=== PATIENT | female | born 1955 | race Caucasian/White ===

== ENCOUNTER → 2016-08-31 | Outpatient (CLI) | payer MEDICARE, BC ==
[2016-08-31 17:11] LABS: Hepatitis B Surface Ag Index 0.07
[2016-08-31 17:16] LABS: Hepatitis B Core IgM Index 0.03
[2016-08-31 17:28] LABS: Hepatitis C Virus IgG Index 0.01
[2016-08-31 17:31] LABS: Hepatitis C Virus IgG Ab Negative (Negative)
[2016-08-31 17:41] LABS: Rheumatoid Factor, Qnt <9 IU/mL (<12)
[2016-09-01 03:51] LABS: Immunoglobulin G 741 mg/dL (700 - 1600)
[2016-09-01 05:52] LABS: Cyclic Citrullinated Pep IgG 9 UNITS (<20)
[2016-09-01 12:24] LABS: Alternaria alternata IgE <0.35 kU/L (<0.35); Asperg. fumagatus IgE <0.35 kU/L (<0.35); Asperg. fumagatus IgE Class CLASS 0; Candida albicans IgE Class CLASS 0; Clad herbarum IgE <0.35 kU/L (<0.35); Clad herbarum IgE Class CLASS 0; Mucor racemosus IgE <0.35 kU/L (<0.35); Mucor racemosus IgE Class CLASS 0; Penicillium chrysogenum IgE <0.35 kU/L (<0.35); Penicillium chrysogenum IgE Cl CLASS 0
== END | disposition home or self-care (01) ==
LOC: LABWHC1 15:57
PROVIDERS: ATTEND Internal Medicine Infectious Disease
DX: M19.90 Unspecified osteoarthritis, unspecified site (principal)
CPT/HCPCS: 36415; 80074; 82784; 85652; 86003; 86200; 86431

== ENCOUNTER → 2016-08-31 | Outpatient (CLI) | payer MEDICARE, BC ==
--- NOTE | 2016-08-31 16:05 | BD ---
EXAMINATION TYPE: MG DEXA axial skeleton. DATE OF EXAM: 08/31/2016 2:00 PM COMPARISON: NONE CLINICAL HISTORY: M81.0 Height: 69 Weight: 178.6 FRAX RISK QUESTIONS: Alcohol (3 or more units per day): no Family History (Parent hip fracture): no Glucocorticoids (More than 3mos): no (Ex: prednisone, prednisolone, methylprednisolone, dexamethasone, and hydrocortisone). History of Fracture in Adulthood: no Secondary Osteoporosis: 1. Type 1 Diabetes: no 2. Hyperthyroidism: no 3. Menopause before 45: yes 4. Malnutrition: no 5. Chronic liver disease: no Rheumatoid Arthritis: no Current Tobacco Use: yes RISK FACTORS HISTORY OF: Hip Fracture (Right/Left): no Spine Fracture: no History of Wrist Fracture: no Surgery to Spine/Hip(right/left)/Wrist (right/left): c-spine Family History of Osteoporosis: no Active: yes Diet low in dairy products/other sources of calcium: yes Postmenopausal woman: hysterectomy age 39 Lost more than 2 inches in height since high school: no Frequent falls: no Adrenal Insufficiency: no MEDICATIONS: Prednisone or other steroids: nasal spray for allergies Thyroid Medications: synthroid How Lon years Additional Medications: effexor, norco, Zanaflex, deserol EXAM MEASUREMENTS: Bone mineral densitometry was performed using the [place] [facility]. Bone mineral density as measured about the Lumbar spine is: ----- L1-L4(G/cm2): 1.271 T Score Values are as follows: ----- L2: -0.7 ----- L3: 0.7 ----- L4: 2.0 ----- L1-L4: 0.8 Bone mineral density has: decreased -8.2 % since study of: 06.03.2014 Bone mineral density about the R hip (g/cm2): 0.948 Bone mineral density about the L hip (g/cm2): 0.963 T Score values are as follows: -----R Neck: -0.6 -----L Neck: -0.5 -----R Intertrochanter: -1.3 -----L Intertrochanter: -1.0 Bone mineral density has: decreased -8.1 % since study of: 06.03.2014 IMPRESSION: Normal bone density NOTE: T-SCORE=SD OF THE YOUNG ADULT MEAN.
== END ==
LOC: RADBDWWP 13:57
PROVIDERS: ATTEND Internal Medicine
DX: M81.0 Age-related osteoporosis without current pathological fracture (principal)
CPT/HCPCS: 77080

== ENCOUNTER → 2016-08-31 | Outpatient (CLI) | payer MEDICARE, BC ==
--- NOTE | 2016-09-01 08:13 | MM ---
Reason for exam: follow-up at short interval from prior study. Last mammogram was performed 7 months ago. History: Patient is postmenopausal. Family history of breast cancer in maternal aunt and breast cancer in mother at age 60. Benign US biopsy breast VAD LT of the left breast, January 25, 2016. Benign excisional biopsy of the left breast, March 13, 2001. Took estrogen for 12 years beginning at age 41. Physical Findings: Nurse did not find any significant physical abnormalities on exam. MG 3D Diag Mammo W/Cad JUSTIN Bilateral CC and MLO view(s) were taken. Prior study comparison: January 25, 2016, left breast MG diagnostic mammo LT wo CAD. January 06, 2016, bilateral MG 3d diag mammo w/cad JUSTIN. The breast tissue is heterogeneously dense. This may lower the sensitivity of mammography. Post biopsy change in the left breasat. No significant new findings when compared with previous films. These results were verbally communicated with the patient and result sheet given to the patient on 08/31/16. ASSESSMENT: Benign, BI-RAD 2 RECOMMENDATION: Routine screening mammogram of both breasts in 5 months. Back on schedule for December 2016.
--- NOTE | 2016-09-01 08:15 | USB ---
Reason for exam: follow-up at short interval from prior study. History: Patient is postmenopausal. Family history of breast cancer in maternal aunt and breast cancer in mother at age 60. Benign US biopsy breast VAD LT of the left breast, January 25, 2016. Benign excisional biopsy of the left breast, March 13, 2001. Took estrogen for 12 years beginning at age 41. US Breast BILAT Right breast ultrasound including all four quadrants, the retroareolar region and axilla demonstrates duct ectasia at the nipple. Left breast ultrasound including all four quadrants, the retroareolar region and axilla demonstrates a 0.34 x 0.37 x 0.26cm lesion too small to characterize at 1 o'clock, clip, post biopsy change, fibrocystic changes. These results were verbally communicated with the patient and result sheet given to the patient on 08/31/16. ASSESSMENT: Benign, BI-RAD 2 RECOMMENDATION: Routine screening mammogram of both breasts in 5 months. Back on schedule for December 2016.
== END ==
LOC: RADMAMWWP 13:52
PROVIDERS: ATTEND Surgery
DX: R92.8 Other abnormal and inconclusive findings on diagnostic imaging of breast (principal)
CPT/HCPCS: 76641; G0204; G0279; 77080

== ENCOUNTER → 2017-01-10 | Outpatient (CLI) | payer MEDICARE, BC ==
[~2017-01-10] MED LIST: FUROSEMIDE 10 MG/ML 2 ML VIAL IV NR
--- NOTE | 2017-01-10 19:18 | NM ---
EXAMINATION TYPE: NM renal flow and function DATE OF EXAM: 01/10/2017 3:58 PM COMPARISON: NONE HISTORY: Flank pain Following administration of 10.1 mCi Tc99m MAG3. Immediate images post injection were performed, post erior imaging was performed dynamically and time activity curves were generated. Patient received 20 mg Lasix IV at approximately 10 minutes. FINDINGS: Split function shows 53.5% activity in the left kidney and 46.5% in the right. Time to one half activity for the left kidney following Lasix injection is 18.3 minutes and with the right kidney 14.5 minutes following initiation of the exam. There is excretion bilaterally. IMPRESSION: Slight discrepancy in retained calculus within the right kidney as compared to the left as described. Findings may be due to patient's known right ureteropelvic junction obstruction.
== END | disposition home or self-care (01) ==
LOC: RADNMMAIN 14:14
PROVIDERS: ATTEND Urology
DX: N20.0 Calculus of kidney (principal)
CPT/HCPCS: 78707; A9562; J1940

== ENCOUNTER → 2017-01-18 | Outpatient (CLI) | payer MEDICARE, BC ==
--- NOTE | 2017-01-18 13:22 | FL ---
EXAMINATION TYPE: FL barium swallow w video DATE OF EXAM: 01/18/2017 COMPARISON: NONE HISTORY: TECHNIQUE: Fluoroscopy. FINDINGS: Fluoroscopic guidance was provided for the procedure performed in conjunction with the [facility] pathology department. Please see complete report forthcoming from the Speech Pathology departmen t. Various consistencies from thin liquid to solids were administered. No aspiration or penetration was evident. No significant pooling was observed in the vallecula. There was normal propulsion of the bolus. Note is made of persistence of the cricopharyngeus muscle during the exam. This appears to be related to the disc level with a disc spacer, could this be related to the surgery? There are times with thi s appears less prominent suggesting this is the cricopharyngeus muscle versus nonradiopaque foreign b griselda. IMPRESSION: 1. Persistence of the cricopharyngeus during the examination which may account for the patient's symp toms. 2. No aspiration or penetration evident during the exam. 3. Postsurgical changes.
== END | disposition home or self-care (01) ==
LOC: RADFLMAIN 11:44
PROVIDERS: ATTEND Otolaryngology
DX: R13.12 Dysphagia, oropharyngeal phase (principal); Z98.890 Other specified postprocedural states
CPT/HCPCS: 74230

== ENCOUNTER → 2017-01-23 | Outpatient (CLI) | payer MEDICARE, BC ==
--- NOTE | 2017-01-23 22:22 | MR ---
MRI CERVICAL SPINE: CLINICAL HISTORY: Cervical region of spinal stenosis and C5-C6 cervical disc displacement per order TECHNIQUE: Multiplanar, multisequence imaging of the cervical spine is performed without and with IV contrast. Patient is injected with 15 cc of MultiHance for the study. Headache with neck pain for 6 m onths causing pain or weakness into right arm per patient. History of prior neck surgery per patient. COMPARISON: MRI cervical spine September 25, 2015. FINDINGS: Sagittal images of the cervical spine show the craniocervical junction to appear within nor mal limits. The cervical and upper thoracic spinal cord is normal in course, caliber, and signal. V ertebral alignment is anatomic. There is redemonstration of artifact from disc material C5-C6 level. There is interval surgery with posterior decompression with improved posterior spinal canal seen on sagittal image 6. There is artifact from posterior fusion hardware signal seen bilaterally. The verte bral body and intravertebral disk heights are normal above and below surgical levels. The bone marro w signal intensity is within normal limits. No suspicious postcontrast enhancement is seen. No signif icant spurring is noted. Axial images show C2-C3 level to remain within normal limits. Axial images at C3-C4 level show mild uncovertebral facet degenerative changes bilaterally with small broad-based posterior disc protrusion. There is mild effacement of the anterior thecal sac and bilat eral neural foramina. Spinal canal is preserved. No significant change from prior study is seen. Axial images at C4-C5 level show uncovertebral facet degenerative changes causing mild left greater t pichardo right neural foraminal narrowing. No significant change from prior study is seen. Axial images at C5-C6 level show artifact from anterior and posterior fusion hardware. There is poste rior midline osseous resection with improved posterior spinal canal or decompression. There is stable mild bilateral neural foraminal narrowing due to marginal spurring. Axial images at C6-C7 level show new broad-based central disc protrusion mildly effacing anterior the desiree sac on axial image 16 confirmed the sagittal image 7. There is asymmetric mild to moderate left-s ided neural foraminal narrowing now identified. Right-sided neural foramen is patent. Axial images at C7-T1 level are felt within normal limits. IMPRESSION: Interval successful posterior decompression C5-C6 level. Some multilevel degenerative edwin nges in the cervical spine are present, some new findings noted at C6-C7 level versus prior study as detailed above.
== END | disposition home or self-care (01) ==
LOC: RADMRIMAIN 15:18
DX: M47.812 Spondylosis without myelopathy or radiculopathy, cervical region (principal); M50.222 Other cervical disc displacement at C5-C6 level
CPT/HCPCS: 72156; A9577

== ENCOUNTER → 2017-03-13 | Outpatient (CLI) | payer MEDICARE, BC ==
--- NOTE | 2017-03-13 15:55 | US ---
EXAMINATION TYPE: US carotid duplex BILAT DATE OF EXAM: 03/13/2017 COMPARISON: NONE CLINICAL HISTORY: I10 Essential hypertension. EXAM MEASUREMENTS: RIGHT: Peak Systolic Velocity (PSV) cm/sec ----- Right CCA: 91.9 ----- Right ICA: 93.0 ----- Right ECA: 76.5 ICA/CCA ratio: 1.0 RIGHT: End Diastole cm/sec ----- Right CCA: 30.3 ----- Right ICA: 42.4 ----- Right ECA: 16.0 LEFT: Peak Systolic Velocity (PSV) cm/sec ----- Left CCA: 72.1 ----- Left ICA: 93.0 ----- Left ECA: 71.2 ICA/CCA ratio: 1.3 LEFT: End Diastole cm/sec ----- Left CCA: 30.3 ----- Left ICA: 43.5 ----- Left ECA: 15.4 VERTEBRALS (direction of flow): Right Vertebral: Antegrade Left Vertebral: Antegrade No significant stenosis seen, no elevated velocities, minimal plaque noted. IMPRESSION: I DO NOT SEE EVIDENCE OF A HEMODYNAMICALLY SIGNIFICANT STENOSIS IN EITHER CAROTID SYSTEM. Criteria for Assigning % of Stenosis / Diameter reduction (Estimation based on the indirect measurements of the internal carotid artery velocities (ICA PSV). 1. Normal (no stenosis)=ICA PSV < 125 cm/s: ratio < 2.0: ICA EDV<40 cm/s. 2. Less than 50% stenosis=ICA PSV < 125 cm/s: ratio < 2.0: ICA EDV<40 cm/s. 3. 50 to 69% stenosis=ICA PSV of 125 to 230 cm/s: ration 2.0 ? 4.0: ICA EDV 40-100 cm/s. 4. Greater than 70% stenosis to near occlusion= ICA PSV > 230 cm/s: ratio > 4.0: ICA EDV > 100 cm/s. 5. Near occlusion= ICA PSV velocities may be low or undetectable: variable ratio and ICA EDV. 6. Total occlusion=unable to detect flow.
== END | disposition home or self-care (01) ==
LOC: RADUSWWP 14:12
PROVIDERS: ATTEND Internal Medicine Cardiovascular Disease
DX: I10 Essential (primary) hypertension (principal); R09.89 Other specified symptoms and signs involving the circulatory and respiratory systems
CPT/HCPCS: 93880

== ENCOUNTER → 2017-03-13 | Outpatient (CLI) | payer MEDICARE, BC ==
--- NOTE | 2017-03-14 07:59 | MM ---
Reason for exam: follow-up at short interval from prior study. Last mammogram was performed 6 months ago. History: Patient is postmenopausal. Family history of breast cancer in maternal aunt and breast cancer in mother at age 60. Benign US biopsy breast VAD LT of the left breast, January 25, 2016. Benign excisional biopsy of the left breast, March 13, 2001. Took estrogen for 12 years beginning at age 41. Physical Findings: Nurse did not find any significant physical abnormalities on exam. MG 3D Diag Mammo W/Cad JUSTIN Bilateral CC and MLO view(s) were taken. Prior study comparison: August 31, 2016, bilateral MG 3d diag mammo w/cad JUSTIN. January 25, 2016, left breast MG diagnostic mammo LT wo CAD. There are scattered fibroglandular densities. Previous ultrasound biopsy in the left breast. Asymmetric breast tissue in the left breast. No significant new findings when compared with previous films. These results were verbally communicated with the patient and result sheet given to the patient on 03/13/17. ASSESSMENT: Benign, BI-RAD 2 RECOMMENDATION: Routine screening mammogram of both breasts in 1 year.
--- NOTE | 2017-03-14 08:00 | USB ---
Reason for exam: follow-up at short interval from prior study. History: Patient is postmenopausal. Family history of breast cancer in maternal aunt and breast cancer in mother at age 60. Benign US biopsy breast VAD LT of the left breast, January 25, 2016. Benign excisional biopsy of the left breast, March 13, 2001. Took estrogen for 12 years beginning at age 41. US Breast BILAT Right breast ultrasound includes all four quadrants, the retroareolar region and axilla. Finding demonstrates no cystic or solid lesion seen. Left breast ultrasound includes all four quadrants, the retroareolar region and axilla. Finding demonstrates a 0.3 x 0.2 x 0.3cm lesion too small to characterize at 2 o'clock, questionable clip seen. These results were verbally communicated with the patient and result sheet given to the patient on 03/13/17. ASSESSMENT: Benign, BI-RAD 2 RECOMMENDATION: Routine screening mammogram of both breasts in 1 year. Manage patient on a clinical basis.
== END | disposition home or self-care (01) ==
LOC: RADMAMWWP 14:04
PROVIDERS: ATTEND Internal Medicine
DX: R92.2 Inconclusive mammogram (principal)
CPT/HCPCS: 76641; G0204; G0279

== ENCOUNTER → 2017-04-11 | Outpatient (CLI) | payer MEDICARE, BC ==
[2017-04-11 13:12] VITALS: BP 151/91; PULSE 65; RESP 18; TEMP 98.1
--- NOTE | 2017-04-12 07:30 | P.CONS ---
History of Present Illness - Reason for Consult Consult date: 04/11/17 - History of Present Illness This initial consultation for this 62 old female with chronic history of severe neck pain with radiation to the upper extremity, associated with numbness and tingling sensation, the symptoms started several years ago without any initiating event, and she had anterior cervical fusion in May 2015, recently she had posterior cervical fusion, the surgery improved her numbness and tingling sensation in the upper extremity , relieve some of her neck pain, and if she is having symptoms of severe neck pain with radiation to the shoulder blade area, with occasional numbness and tingling in the upper extremities, she is currently using Medication Neurontin 800 mg 3 times a day but she is not taking it as prescribed she take it only if she feels numbness, she reported that Neurontin 800 mg make her sleepy, though she is taking Zanaflex 4 mg every 8 hours and Alpine 10 mg every 6 hours when necessary, denies any change in her bowel movements or urination and she denies any motor or sensory deficit, had no fever or night sweats Past Medical History Past Medical History: Fibromyalgia, GERD/Reflux, Musculoskeletal Disorder, Osteoarthritis (OA), Thyroid Disorder Additional Past Medical History / Comment(s): 05/21/15 Pt admitted to floor s/ p anterior cervical fusion C5-6. Other HX: IBS, lyme disease-delayed speech due to, interstitial cystitis, chronic headaches, ethmoid thickening-taking antibiotic for this "inflammation" History of Any Multi-Drug Resistant Organisms: None Reported Past Surgical History: Bariatric Surgery, Cholecystectomy, Hysterectomy, Orthopedic Surgery Additional Past Surgical History / Comment(s): 05/21/15 Anerior cervical neck fusion C5-6. Other SX: bladder suspension, multiple sinus surgeries, gastric sleeve Past Anesthesia/Blood Transfusion Reactions: Postoperative Nausea & Vomiting ( PONV) Past Psychological History: Anxiety, Depression Additional Psychological History / Comment(s): Pt resides with another adult. She is independent. She uses no assistive device. She drives. Smoking Status: Current every day smoker Past Alcohol Use History: None Reported Additional Past Alcohol Use History / Comment(s): started smoking 10 yrs. ago Past Drug Use History: None Reported - Past Family History Father Family Medical History: Deep Vein Thrombosis (DVT) Mother Family Medical History: AFIB, Cancer Medications and Allergies Home Medications Medication Instructions Recorded Confirmed Type Gabapentin [Neurontin] 800 mg PO TID PRN 04/14/14 04/11/17 History Hydrocodone/Acetaminophen [Alpine 1 each PO Q6H PRN 04/14/14 04/11/17 History 10-325] Lansoprazole [Prevacid] 30 mg PO BID 04/14/14 04/11/17 History Levothyroxine Sodium [Synthroid] 50 mcg PO DAILY 04/14/14 04/11/17 History lamoTRIgine [LaMICtal] 200 mg PO BID 04/14/14 04/11/17 History traZODone HCL [Desyrel] 100 mg PO HS 04/14/14 04/11/17 History ALPRAZolam [Xanax XR] 1 mg PO TID PRN 05/18/15 05/21/15 History Fluconazole [Diflucan] 100 mg PO BID PRN 05/18/15 05/21/15 History Prochlorperazine [Compazine] 10 mg PO Q8H PRN 05/18/15 04/11/17 History Venlafaxine HCl ER [Effexor Xr] 150 mg PO DAILY 05/18/15 04/11/17 History tiZANidine [Zanaflex] 4 mg PO Q8HR PRN 05/18/15 05/21/15 History Allergies Allergy/AdvReac Type Severity Reaction Status Date / Time atenolol AdvReac elevated BP Verified 04/11/17 12:57 atorvastatin calcium AdvReac elevated Verified 04/11/17 12:57 [From Lipitor] liver enzymes hydromorphone HCl AdvReac hyper & Verified 04/11/17 12:57 [From Dilaudid] paranoid morphine AdvReac hyper & Verified 04/11/17 12:57 paranoid Physical Exam Vitals: Vital Signs Temp Pulse Resp BP Pulse Ox 04/11/17 13:04 98.1 F 65 18 151/91 99 Social history : smoker , NO ETOH , NO Illegal drugs use Review of Systems : 1- Constitutional : no chills , no fever , no night sweats , 2- Ears : no ear discharge , no change in hearing 3-Nose, Mouth ,Throat ; no bleeding gums, no sore throat , no epistaxis , 4-Cardiovascular : Denies chest pain, , no orthopnea , no palpitation 5-Respiratory : Denies cough , no dyspnea , no hemoptysis 6-Gastrointestinal :, no change in bowel habits , no coffee- ground emesis . 7-Genitourinary : Interstitial cystitis, 8-Musculoskeletal : No gait dysfunction , report neck pain , 9- Neurological : no ataxia , no tremor , no sezure , 10-Psychatric , no suicidal ideation no hallucination ,+ anexity ,+ depression 11- Endocrine : no cold intolerence , no polyuria , no polydypsia , 12-Hematologic : no easy bleeding , no easy brusing , 13-Allergic / immunology : no angioedema , no wheezing ,no allergic rhinitis 14-Integumentary : no brttle nails , no change hair / nails , no foot/leg ulcers . Physical Examinations : 1-Constitutional : Cooperative , not in acute distress . 2-HEENT : nech ; supple , no Lymphadenopathy , no Thyromegaly , :eyes , no icterus, no photophobia . ENT : , normal oropharynx , no Thrush 3- Respiratory : Chest clear to auscultations Bilaterally , no wheezing . 4- Cardiovascular : regular rate and rhythem , S1 , S2 , no S3 , no S4. 5- Gastrointestinal: abdomen soft no tenderness , no organomegally . 6- Genitourinary : Defferred . 7-Integumentary : No cellulitis , no ulcers , normal skin turgor , no cyanotic . 8- neurologic : Cranial nerve II to XII intact , no focal neurological deffecit 9-psychatric : alert , oriented X 3 , appropriate affect , intact judgment and insight . 10-Lymphatic : no Lymphadenopathy. 11- musculoskeltal: normal gait Cervical Spine motor stregnth in the deltoid and biceps, normal right side , normal Left side motor stregnth biceps and the wrist extensors normal right side ,normal left side . motor stregnth in the triceps muscle . normal Right side , normal Left side deep tendon reflexes normal at the biceps , normal at Brachioradialis , normal at triceps. positive cervical facet loading test . Total trigger point identified in the cervical paravertebral muscles and parascapular muscles Lumber spine moter stegnth lower extremities ,thigh and legs 5/5 Right side , 5/5 Left side Results Comments: I the cervical spine done 01/23/2017= C5 6 anterior and posterior fusion hardware, mild foraminal stenosis, C6 7 central disc protrusion, C4 5 facet this , C3- 4 facet degeneration Assessment and Plan Plan: Assessment and plan= chronic neck pain secondary to cervical facet arthropathy , cervical foraminal stenosis, and myofascial pain syndromes cervical and suprascapular muscles, She had a history of cervical fusion anterior and posterior fusion, ( we Can not perform cervical epidural steroid injection ) Patient could benefit from cervical, suprascapular muscles trigger point injections, and if she continued to have neck pain after the trigger point injection and then we can from diagnostic medial branch block cervical area, and if successful then we can perform the frequency ablation of the medial branch cervical area Discussed with the patient medication management I explained to her that she needs to take Neurontin continuously I gave a new prescription for Neurontin 300 mg Bid , and can be increased in the future as tolerated, so patient should continue Zanaflex 4 mg every 8 hours and she should continue her Alpine 10/325 every 6 hours Time with Patient: Greater than 30
== END | disposition home or self-care (01) ==
LOC: PNWHC3 12:12
PROVIDERS: ATTEND Specialist
DX: M99.71 Connective tissue and disc stenosis of intervertebral foramina of cervical region (principal); M46.92 Unspecified inflammatory spondylopathy, cervical region; M79.1 Myalgia; E07.9 Disorder of thyroid, unspecified; K21.9 Gastro-esophageal reflux disease without esophagitis; F17.200 Nicotine dependence, unspecified, uncomplicated; Z88.8 Allergy status to other drugs, medicaments and biological substances; Z88.5 Allergy status to narcotic agent; Z79.899 Other long term (current) drug therapy
CPT/HCPCS: 99211

== ENCOUNTER 2017-05-30 07:11 | Day surgery (SDC) | payer MEDICARE, BC ==
[2017-05-29 08:27] VITALS: BMI 24.3
[2017-05-30 07:25] VITALS: TEMP 97.8
[2017-05-30] MEDS ORDERED: LACTATED RINGERS 1,000 ML IV ONE (07:25)
[2017-05-30] MEDS ORDERED: LIDOCAINE 1% 20 ML VIAL (10MG/ML) FOR IV START INTRADERMA ONE (07:26)
[2017-05-30] MEDS ORDERED: LACTATED RINGERS 1,000 ML IV SCH (07:30)
[2017-05-30] MEDS ORDERED: IV FLUID CONTINUATION 1,000 ML IV ONE (08:38)
[2017-05-30 09:08] VITALS: BP 134/94; PULSE 61; RESP 16
--- NOTE | 2017-05-30 11:11 | P.PCN ---
Date of Procedure: 05/30/17 Surgeon: Jhonatan Abdi Pathology: none sent Condition: stable Disposition: PACU Description of Procedure: PREOPERATIVE DIAGNOSIS: 1-myofascial pain syndrome POSTOPERATIVE DIAGNOSIS: 1-myofascial pain syndrome PROCEDURE 1. Trigger point injections (cervical paraspinal, thoracic paraspinal, and suprascapular muscles) ANESTHESIA: Local with 1% lidocaine; IV sedation with Versed/fentanyl. EBL: Minimal PROCEDURE INDICATION: The patient with myofascial pain in the area of neck, mid- back, and bilateral shoulders that has not responded to conservative therapy. Patient presents for trigger point injection today; no use of blood thinners. PROCEDURE DESCRIPTION / TECHNIQUE: The patient was seen and identified in the preoperative area. Risks, benefits, complications, and alternatives were discussed with the patient, including but not limited to bleeding, infection, nerve damage, allergic reactions to medications, and incomplete pain relief. The patient agreed to proceed with the procedure and signed the consent after all questions were answered. IV was started, and vital signs were stable. Trigger points were marked prior to entering the procedure room in the places where the patient had severe pain to muscle palpation. Patient was taken to the OR and time out was completed to confirm patient position, procedure, laterality of pain, and allergies. The patient was placed in the sitting position on procedure table. The area over the relevant muscle ( neck/mid-back, and shoulders) was prepped and draped in the usual sterile fashion. Vital signs were closely monitored during the procedure. Conscious sedation was used during the procedure to decrease patients anxiety. Each of the previously marked areas was then infiltrated with 1% plain lidocaine using a 25g needle. After this, each point was entered with the same 25g needle and after a catch was felt, dry needling was performed. After negative aspiration at each point, 1 ml of a total of 13 ml (combination of 12 ml 0.5% bupivacaine and 40 mg Kenalog was injected in each area. Needle was withdrawn intact each time, skin was cleansed, and bandages were applied. COMPLICATIONS: None COMMENTS: None DISPOSITION / PLANS: The patient was placed in a supine position and transferred to the recovery area in a stable condition for observation. There was no evidence of lower extremity motor or sensory deficit after the procedure. Patient was discharged from the recovery room after meeting discharge criteria. Home discharge instructions were given to the patient by the staff. The patient was reexamined prior to discharge and the patient already had relief. The patient will schedule a repeat TPI in 4-6 weeks.
== END 2017-05-30 09:41 | disposition home or self-care (01) ==
LOC: ORPAIN 07:11
PROVIDERS: ATTEND Anesthesiology
DX: M79.1 Myalgia (principal); Z88.5 Allergy status to narcotic agent; Z88.8 Allergy status to other drugs, medicaments and biological substances
CPT/HCPCS: 99152; 20553; J2250; J3301

== ENCOUNTER → 2017-06-29 | Outpatient (CLI) | payer MEDICARE, BC ==
[2017-06-29 14:40] VITALS: BP 151/90; PULSE 60; RESP 16
--- NOTE | 2017-06-29 14:53 | P.PN ---
Progress Note - Text Progress Note Date: 06/29/17 This is a 8-year-old female with history of anterior and posterior cervical fusions. The patient had an exacerbation of her neck pain last week for which she had to take more of her [place] and Valium. The pain is better right now. She did have good relief of her pain after the trigger point injection that lasted about 5 weeks, then she said that her pain came out all of a sudden and was very severe throughout the last week. By physical exam she has normal deep tendon reflexes in the upper extremities and normal muscle strength. She has well-healed scar from her previous posterior cervical fusion and significant tenderness on both sides of the scar tissue and also in the trapezius muscles bilaterally. At this point I'll schedule the patient to have another injection of trigger points and also give her prescription only for 15 pills of Valium 5 mg to be taken only with exacerbations of her pain. PQRS measures: 1-Patient's medications are documented in the chart. 2-Tobacco use is positive, counseling given 3-Patient has not had a pneumococcal vaccine. 4-Advanced care planning discussed, patient unable to give 5-Opioid contract we are not prescribing opioids for the patient 6-Pain positive, follow-up visit or procedure scheduled 7-Patient's blood pressure measured and documented , it is mildly elevated and the patient will follow-up with her primary care physician.. 8-Patient's weight was measured, and body mass index ABOVE the normal limits, and counseling was done. Patient instructed to follow up with PCP. 9-Patient WAS NOT identified as an unhealthy alcohol user.
== END | disposition home or self-care (01) ==
LOC: PNWHC3 13:49
PROVIDERS: ATTEND Anesthesiology
DX: M54.2 Cervicalgia (principal)
CPT/HCPCS: 99211

== ENCOUNTER → 2017-07-11 | Day surgery (SDC) | payer MEDICARE, BC ==
[2017-07-10 12:35] VITALS: BMI 25.1
[~2017-07-11] MED LIST changes: -FUROSEMIDE 10 MG/ML 2 ML VIAL IV NR; +IV FLUID CONTINUATION 1,000 ML IV ONE; +LACTATED RINGERS 1,000 ML IV ONE; +LIDOCAINE 1% 20 ML VIAL (10MG/ML) FOR IV START INTRADERMA ONE
[2017-07-11 10:44] VITALS: RESP 16; TEMP 98.1
--- NOTE | 2017-07-11 11:29 | P.PCN ---
Date of Procedure: 07/11/17 Surgeon: Jhonatan Abdi Pathology: none sent Condition: stable Disposition: PACU Description of Procedure: PREOPERATIVE DIAGNOSIS: 1-myofascial pain syndrome POSTOPERATIVE DIAGNOSIS: 1-myofascial pain syndrome PROCEDURE 1. Trigger point injections (cervical paraspinal, thoracic paraspinal, and trapezius muscles) x 18 ANESTHESIA: Local with 1% lidocaine; IV sedation with Versed EBL: Minimal PROCEDURE INDICATION: The patient with myofascial pain in the area of neck, mid- back, and bilateral shoulders that has not responded to conservative therapy. Patient presents for trigger point injection today after three weeks' relief from first; no use of blood thinners. PROCEDURE DESCRIPTION / TECHNIQUE: The patient was seen and identified in the preoperative area. Risks, benefits, complications, and alternatives were discussed with the patient, including but not limited to bleeding, infection, nerve damage, allergic reactions to medications, and incomplete pain relief. The patient agreed to proceed with the procedure and signed the consent after all questions were answered. IV was started, and vital signs were stable. Trigger points were marked prior to entering the procedure room in the places where the patient had severe pain to muscle palpation. Patient was taken to the OR and time out was completed to confirm patient position, procedure, laterality of pain, and allergies. The patient was placed in the sitting position on procedure table. The area over the relevant muscle ( neck/mid-back, and bilateral shoulders) was prepped and draped in the usual sterile fashion. Vital signs were closely monitored during the procedure. Conscious sedation was used during the procedure to decrease patients anxiety. Each of the previously marked areas was then infiltrated with 1% plain lidocaine using a 25g needle. After this, each point was entered with the same 25g needle and after a catch was felt, dry needling was performed. After negative aspiration at each point, 1 ml of a total of 18 ml (combination of 17 ml 0.5% bupivacaine and 40 mg Kenalog was injected in each area. Needle was withdrawn intact each time, skin was cleansed, and bandages were applied. COMPLICATIONS: None COMMENTS: None DISPOSITION / PLANS: The patient was placed in a supine position and transferred to the recovery area in a stable condition for observation. There was no evidence of lower extremity motor or sensory deficit after the procedure. Patient was discharged from the recovery room after meeting discharge criteria. Home discharge instructions were given to the patient by the staff. The patient was reexamined prior to discharge and the patient already had relief. The patient will schedule a follow-up in clinic in 4-6 weeks.
[2017-07-11 12:05] VITALS: BP 176/83; PULSE 61
== END | disposition home or self-care (01) ==
LOC: ORPAIN 10:04
PROVIDERS: ATTEND Anesthesiology
DX: M79.1 Myalgia (principal); Z98.1 Arthrodesis status
CPT/HCPCS: 20553; J2250; J3301; J2001; 99152

== ENCOUNTER → 2018-03-29 | Outpatient (CLI) | payer MEDICARE, BC | END | disposition home or self-care (01) | LOC: LABWHC1 16:47 | PROVIDERS: ATTEND Urology | DX: R10.2 Pelvic and perineal pain (principal) | CPT/HCPCS: 36415; 82040; 82670; 84270; 84403 ==

== ENCOUNTER → 2018-03-29 | Outpatient (CLI) | payer MEDICARE, BC ==
--- NOTE | 2018-03-29 17:01 | CT ---
EXAMINATION TYPE: CT sinus wo con DATE OF EXAM: 03/29/2018 COMPARISON: 12/09/2014 HISTORY: Sinus pain and infections x [address] DLP: 673.2 mGycm. Automated Exposure Control for Dose Reduction was Utilized. TECHNIQUE: CT scan of the sinuses is performed without contrast, axial images are obtained, coronal r eformatted images are also reviewed. FINDINGS: There is chronic mucoperiosteal thickening of the left maxillary sinus relating to minimal acute on chronic paranasal sinus disease. There is small polypoid mucosal thickening within the infer ior posterior right maxillary sinus on series 6 image 8 measuring 3 mm likely representing a mucosal retention cyst. Probable mucosal retention cyst is also seen within the left sphenoid sinus on image 28 measuring 9 mm. Additional probable mucosal retention cyst versus polyp is seen within the frontal sinus on image 41 measuring 7 mm. There is surgical augmentation of the bilateral ostiomeatal comple xes with antrostomy defects. Nasal septum remains midline. No contra bullosa or Laurie cells. The visualized portions of the mastoid air cells are well aerated. Multilevel dentigerous disease is noted. Nasal spine and maxillary spine are intact. No middle ear cavity fluid is seen. Extraocular mu scles, globes, and lenses are symmetric. IMPRESSION: 1. Minimal left maxillary mucoperiosteal thickening suggesting mild acute on chronic sinusitis. 2. Polypoid mucosal thickening within the right maxillary sinus, left sphenoid sinus and frontal sinu s that may represent mucosal retention cysts or less likely polyps. 3. Postsurgical augmentation of the ostiomeatal complexes with no evidence of ostiomeatal complex obs truction. No contra bullosa or Laurie cells.
== END | disposition home or self-care (01) ==
LOC: RADCTMAIN 16:22
PROVIDERS: ATTEND Otolaryngology Plastic Surgery within the Head & Neck
DX: J34.89 Other specified disorders of nose and nasal sinuses (principal); J32.9 Chronic sinusitis, unspecified; Z98.890 Other specified postprocedural states
CPT/HCPCS: 70486

== ENCOUNTER → 2018-05-30 | Outpatient (CLI) | payer MEDICARE, BC ==
--- NOTE | 2018-05-31 12:37 | ECHOF ---
Referral Reason:R00.2 Palpitations; I34.1 Mitral valve prolapse MEASUREMENTS -------- HEIGHT: 175.3 cm WEIGHT: 72.6 kg BP: 110/70 RVIDd: 3.1 cm (< 3.3) IVSd: 1.0 cm (0.6 - 1.1) LVIDd: 4.2 cm (3.9 - 5.3) LVPWd: 1.0 cm (0.6 - 1.1) IVSs: 1.2 cm LVIDs: 3.6 cm LVPWs: 1.5 cm LA Diam: 2.8 cm (2.7 - 3.8) LAESV Index (A-L): 21.64 ml/m Ao Diam: 2.9 cm (2.0 - 3.7) AV Cusp: 2.0 cm (1.5 - 2.6) MV EXCURSION: 14.881 mm (> 18.000) MV EF SLOPE: 104 mm/s (70 - 150) EPSS: 0.9 cm MV E Tyshawn: 0.70 m/s MV DecT: 178 ms MV A Tyshawn: 0.84 m/s MV E/A Ratio: 0.83 FINDINGS -------- Sinus rhythm. This was a technically adequate study. The left ventricular size is normal. Left ventricular wall thickness is normal. Overall left vent ricular systolic function is low-normal with, an EF between 50 - 55 %. The right ventricle is normal in size. Normal LA size by volume 22+/-6 ml/m2. The right atrium is normal in size. There is mild aortic valve sclerosis. The mitral valve leaflets are mildly thickened. Mild mitral annular calcification present. There is trace mitral regurgitation. The tricuspid valve appears structurally normal. The pulmonic valve was not well visualized. The aortic root size is normal. Normal inferior vena cava with normal inspiratory collapse consistent with estimated right atrial pre ssure of 5 mmHg. The inferior vena cava is mildly dilated. There is no pericardial effusion. CONCLUSIONS -------- 1. Sinus rhythm. 2. This was a technically adequate study. 3. The left ventricular size is normal. 4. Left ventricular wall thickness is normal. 5. Overall left ventricular systolic function is low-normal with, an EF between 50 - 55 %. 6. The right ventricle is normal in size. 7. Normal LA size by volume 22+/-6 ml/m2. 8. The right atrium is normal in size. 9. There is mild aortic valve sclerosis. 10. The mitral valve leaflets are mildly thickened. 11. Mild mitral annular calcification present. 12. There is trace mitral regurgitation. 13. The tricuspid valve appears structurally normal. 14. The pulmonic valve was not well visualized. 15. The aortic root size is normal. 16. Normal inferior vena cava with normal inspiratory collapse consistent with estimated right atrial pressure of 5 mmHg. 17. The inferior vena cava is mildly dilated. 18. There is no pericardial effusion. STRE[facility]IRER: Alysia Concepcion RDCS
== END | disposition home or self-care (01) ==
LOC: RADECHMAIN 13:10
PROVIDERS: ATTEND Internal Medicine Cardiovascular Disease
DX: I35.8 Other nonrheumatic aortic valve disorders (principal)
CPT/HCPCS: 93306

== ENCOUNTER → 2018-06-22 | Outpatient (CLI) | payer MEDICARE, BC ==
--- NOTE | 2018-06-25 13:32 | MM ---
Reason for exam: screening (asymptomatic). Last mammogram was performed 1 year and 3 months ago. History: Patient is postmenopausal. Family history of breast cancer in maternal aunt and breast cancer in mother at age 60. Benign US biopsy breast VAD LT of the left breast, January 25, 2016. Benign excisional biopsy of the left breast, March 13, 2001. Took estrogen for 12 years beginning at age 41. Physical Findings: A clinical breast exam by your physician is recommended on an annual basis and results should be correlated with mammographic findings. MG 3D Screening Mammo W/Cad Bilateral CC and MLO view(s) were taken. Prior study comparison: March 13, 2017, bilateral MG 3d diag mammo w/cad JUSTIN. August 31, 2016, bilateral MG 3d diag mammo w/cad JUSTIN. The breast tissue is heterogeneously dense. This may lower the sensitivity of mammography. There is no discrete abnormality. No significant changes when compared with prior studies. ASSESSMENT: Negative, BI-RAD 1 RECOMMENDATION: Routine screening mammogram of both breasts in 1 year.
== END | disposition home or self-care (01) ==
LOC: RADMAMWWP 16:46
PROVIDERS: ATTEND Internal Medicine
DX: Z12.31 Encounter for screening mammogram for malignant neoplasm of breast (principal)
CPT/HCPCS: 77063; 77067

== ENCOUNTER 2018-09-07 15:54 | Emergency (ER) | payer MEDICARE, BC ==
[2018-09-07 16:03] VITALS: TEMP 97.7
--- NOTE | 2018-09-07 16:57 | ED ---
General Adult HPI - General Chief complaint: Syncope Stated complaint: Syncope, Fall, head injury Source: patient Mode of arrival: ambulatory Limitations: no limitations - Related Data Home Medications Medication Instructions Recorded Confirmed Hydrocodone/Acetaminophen [[place] 1 tab PO TID PRN 04/14/14 09/07/18 10-325] Lansoprazole [Prevacid] 30 mg PO BID 04/14/14 09/07/18 Levothyroxine Sodium [Synthroid] 50 mcg PO DAILY 04/14/14 09/07/18 lamoTRIgine [LaMICtal] 200 mg PO BID 04/14/14 09/07/18 traZODone HCL [Desyrel] 200 mg PO HS 04/14/14 09/07/18 ALPRAZolam [Xanax XR] 1 mg PO TID 05/18/15 09/07/18 Prochlorperazine [Compazine] 10 mg PO Q8H PRN 05/18/15 09/07/18 Venlafaxine HCl ER [Effexor Xr] 150 mg PO DAILY 05/18/15 09/07/18 tiZANidine [Zanaflex] 8 mg PO Q8HR PRN 05/18/15 09/07/18 Meloxicam [Mobic] 15 mg PO DAILY 05/01/17 09/07/18 Plecanatide [Trulance] 3 mg PO DAILY 05/29/17 09/07/18 Ranitidine HCl [Zantac] 150 mg PO BID 06/29/17 09/07/18 Diltiazem Oral [Cardizem Oral] 30 mg PO DAILY 09/07/18 09/07/18 Gabapentin [Neurontin] 300 mg PO TID 09/07/18 09/07/18 Allergies Allergy/AdvReac Type Severity Reaction Status Date / Time atenolol Allergy elevated BP Verified 09/07/18 17:08 morphine AdvReac hyper & Verified 09/07/18 17:08 paranoid Review of Systems ROS Statement: Those systems with pertinent positive or pertinent negative responses have been documented in the HPI. ROS Other: All systems not noted in ROS Statement are negative. Past Medical History Past Medical History: Fibromyalgia, GERD/Reflux, Musculoskeletal Disorder, Osteoarthritis (OA), Thyroid Disorder Additional Past Medical History / Comment(s): HX: IBS, lyme disease with delayed speech , interstitial cystitis, chronic headaches, ethmoid thickening History of Any Multi-Drug Resistant Organisms: None Reported Past Surgical History: Bariatric Surgery, Bladder Surgery, Cholecystectomy, Hysterectomy, Orthopedic Surgery Additional Past Surgical History / Comment(s): Anterior cervical neck fusion C5- 6. followed by posterior approach c5,C6 with 4 screws, and barbie, bladder suspension,interstim implant bladder, multiple sinus surgeries, gastric sleeve Past Anesthesia/Blood Transfusion Reactions: Postoperative Nausea & Vomiting ( PONV) Past Psychological History: Anxiety, Depression Smoking Status: Current every day smoker Past Alcohol Use History: None Reported Past Drug Use History: None Reported - Past Family History Father Family Medical History: Deep Vein Thrombosis (DVT) Mother Family Medical History: AFIB, Cancer Additional Family Medical History / Comment(s): breast cancer General Exam Limitations: no limitations Course Vital Signs 09/07/18 09/07/18 09/07/18 16:00 16:18 17:39 Temperature 97.7 F Pulse Rate 68 50 L Pulse Rate [ 65 Sitting] Pulse Rate [ 70 Standing] Pulse Rate [ 57 L Supine] Respiratory 20 16 18 Rate Blood Pressure 142/90 167/96 Blood Pressure 144/96 [Left Arm Sitting] Blood Pressure 128/88 [Left Arm Standing] Blood Pressure 138/85 [Left Arm Supine] O2 Sat by Pulse 99 98 98 Oximetry 09/07/18 18:24 Temperature Pulse Rate 56 L Pulse Rate [ Sitting] Pulse Rate [ Standing] Pulse Rate [ Supine] Respiratory 18 Rate Blood Pressure 160/99 Blood Pressure [Left Arm Sitting] Blood Pressure [Left Arm Standing] Blood Pressure [Left Arm Supine] O2 Sat by Pulse 99 Oximetry Medical Decision Making - Medical Decision Making Dictation was produced using [employer] dictation software. please excuse any grammatical, word or spelling errors. Chief Complaint: 63-year-old female past medical history of lung disease, fibromyalgia presents after fall and head contusion. History of Present Illness: Patient is 63-year-old female past medical history of fibromyalgia and chronic pain presents with fall. Patient states she fell yesterday evening. She states that she remembers feeling sleepy causing her to fall to the ground. She states she hit her right parietal head. Denies any loss of consciousness. Patient states she was sleepy and slept on the ground. She took Zanaflex and gabapentin prior to this episode. Patient takes gabapentin when necessary. She'll stick Zanaflex. Patient feels okay now. She does complain of some pain over her right head. The ROS documented in this emergency department record has been reviewed and confirmed by me. Those systems with pertinent positive or negative responses have been documented in the HPI. All other systems are other negative and/or noncontributory. PHYSICAL EXAM: General Impression: Alert and oriented x3, not in acute distress HEENT: Normocephalic atraumatic, extra-ocular movements intact, pupils equal and reactive to light bilaterally, mucous membranes moist, tenderness to palpation over the left parietal head Cardiovascular: Heart regular rate and rhythm, S1&S2 audible, no murmurs, rubs or gallops Chest: Lungs clear to auscultation bilaterally, no rhonchi, no wheeze, no rales Abdomen: Bowel sounds present, abdomen soft, non-tender, non-distended, no organomegaly Musculoskeletal: Pulses present and equal in all extremities, no peripheral edema Motor: Power 5/5 bilaterally, no focal deficits noted Neurological: CN II-XII grossly intact, no focal motor or sensory deficits noted Skin: Intact with no visualized rashes Psych: Normal affect and mood ED course: 63-year-old male presents after fall. Vital signs upon arrival are within acceptable limits Laboratory evaluation obtained. CBC, metabolic panel, urinalysis, rapid urine drug screen obtained. She is has a for opiates and benzodiazepines. CT head and C-spine were obtained showing no acute processes. She is told to avoid Zanaflex because likely she syncopized secondary to that medication. Patient told to follow-up with primary care physician. Patient clear for discharge. EKG interpretation: Ventricular rate 59, sinus bradycardia, KS interval 160, QRS 90, QTC 41. No KS prolongation, no QTC prolongation, no ST or T-wave changes noted. Overall, this EKG is unremarkable - Lab Data Result diagrams: 09/07/18 16:23 09/07/18 16:23 Lab Results 09/07/18 09/07/18 09/07/18 Range/Units 16:23 16:23 17:03 WBC 3.6 L (3.8-10.6) k/uL RBC 4.53 (3.80-5.40) m/uL Hgb 12.7 (11.4-16.0) gm/dL Hct 39.9 (34.0-46.0) % MCV 88.0 (80.0-100.0) fL MCH 28.1 (25.0-35.0) pg MCHC 31.9 (31.0-37.0) g/dL RDW 15.2 (11.5-15.5) % Plt Count 215 (150-450) k/uL Neutrophils % 55 % Lymphocytes % 32 % Monocytes % 6 % Eosinophils % 3 % Basophils % 1 % Neutrophils # 2.0 (1.3-7.7) k/uL Lymphocytes # 1.1 (1.0-4.8) k/uL Monocytes # 0.2 (0-1.0) k/uL Eosinophils # 0.1 (0-0.7) k/uL Basophils # 0.0 (0-0.2) k/uL Sodium 135 L (137-145) mmol/L Potassium 4.8 (3.5-5.1) mmol/L Chloride 102 (98-107) mmol/L Carbon Dioxide 24 (22-30) mmol/L Anion Gap 9 mmol/L BUN 14 (7-17) mg/dL Creatinine 0.98 (0.52-1.04) mg/dL Est GFR (CKD-EPI)AfAm 72 (>60 ml/min/1.73 sqM) Est GFR (CKD-EPI)NonAf 62 (>60 ml/min/1.73 sqM) Glucose 84 (74-99) mg/dL Calcium 9.6 (8.4-10.2) mg/dL Magnesium 2.1 (1.6-2.3) mg/dL Urine Color Yellow Urine Appearance Clear (Clear) Urine pH 6.0 (5.0-8.0) Ur Specific [place] 1.010 (1.001-1.035) Urine Protein Negative (Negative) Urine Glucose (UA) Negative (Negative) Urine Ketones Negative (Negative) Urine Blood Negative (Negative) Urine Nitrite Negative (Negative) Urine Bilirubin Negative (Negative) Urine Urobilinogen <2.0 (<2.0) mg/dL Ur Leukocyte Esterase Negative (Negative) Urine Opiates Screen (NotDetected) Ur Oxycodone Screen (NotDetected) Urine Methadone Screen (NotDetected) Ur Propoxyphene Screen (NotDetected) Ur Barbiturates Screen (NotDetected) U Tricyclic Antidepress (NotDetected) Ur Phencyclidine Scrn (NotDetected) Ur Amphetamines Screen (NotDetected) U Methamphetamines Scrn (NotDetected) U Benzodiazepines Scrn (NotDetected) Urine Cocaine Screen (NotDetected) U Marijuana (THC) Screen (NotDetected) 09/07/18 Range/Units 17:03 WBC (3.8-10.6) k/uL RBC (3.80-5.40) m/uL Hgb (11.4-16.0) gm/dL Hct (34.0-46.0) % MCV (80.0-100.0) fL MCH (25.0-35.0) pg MCHC (31.0-37.0) g/dL RDW (11.5-15.5) % Plt Count (150-450) k/uL Neutrophils % % Lymphocytes % % Monocytes % % Eosinophils % % Basophils % % Neutrophils # (1.3-7.7) k/uL Lymphocytes # (1.0-4.8) k/uL Monocytes # (0-1.0) k/uL Eosinophils # (0-0.7) k/uL Basophils # (0-0.2) k/uL Sodium (137-145) mmol/L Potassium (3.5-5.1) mmol/L Chloride (98-107) mmol/L Carbon Dioxide (22-30) mmol/L Anion Gap mmol/L BUN (7-17) mg/dL Creatinine (0.52-1.04) mg/dL Est GFR (CKD-EPI)AfAm (>60 ml/min/1.73 sqM) Est GFR (CKD-EPI)NonAf (>60 ml/min/1.73 sqM) Glucose (74-99) mg/dL Calcium (8.4-10.2) mg/dL Magnesium (1.6-2.3) mg/dL Urine Color Urine Appearance (Clear) Urine pH (5.0-8.0) Ur Specific [place] (1.001-1.035) Urine Protein (Negative) Urine Glucose (UA) (Negative) Urine Ketones (Negative) Urine Blood (Negative) Urine Nitrite (Negative) Urine Bilirubin (Negative) Urine Urobilinogen (<2.0) mg/dL Ur Leukocyte Esterase (Negative) Urine Opiates Screen Detected H (NotDetected) Ur Oxycodone Screen Not Detected (NotDetected) Urine Methadone Screen Not Detected (NotDetected) Ur Propoxyphene Screen Not Detected (NotDetected) Ur Barbiturates Screen Not Detected (NotDetected) U Tricyclic Antidepress Not Detected (NotDetected) Ur Phencyclidine Scrn Not Detected (NotDetected) Ur Amphetamines Screen Not Detected (NotDetected) U Methamphetamines Scrn Not Detected (NotDetected) U Benzodiazepines Scrn Detected H (NotDetected) Urine Cocaine Screen Not Detected (NotDetected) U Marijuana (THC) Screen Not Detected (NotDetected) Disposition Clinical Impression: Syncope Disposition: HOME SELF-CARE Condition: Fair Instructions: Syncope (ED) Is patient prescribed a controlled substance at d/c from ED?: No Referrals: Carly Loyd MD [Primary Care Provider] - 1-2 days Time of Disposition: 18:35
[2018-09-07] MEDS ORDERED: MORPHINE SULFATE 4 MG/ML SYRINGE IVP STA (17:06)
[2018-09-07 17:19] LABS: Basophils % (A) 1 %; Eosinophils # (A) 0.1 k/uL (0-0.7); Eosinophils % (A) 3 %; HCT 39.9 % (34.0-46.0); HGB 12.7 gm/dL (11.4-16.0); Lymphocytes # (A) 1.1 k/uL (1.0-4.8); Lymphocytes % (A) 32 %; MCH 28.1 pg (25.0-35.0); MCHC 31.9 g/dL (31.0-37.0); Mean Platelet Volume 6.7; Monocytes # (A) 0.2 k/uL (0-1.0); Monocytes % (A) 6 %; Neutrophils % (A) 55 %; Platelet Count 215 k/uL (150-450); RBC 4.53 m/uL (3.80-5.40); RDW 15.2 % (11.5-15.5); WBC 3.6 k/uL (3.8-10.6)
[2018-09-07 17:21] LABS: Appearance,Urine Clear (Clear); Bilirubin,Urine Negative (Negative); Blood,Urine Negative (Negative); Color,Urine Yellow; Glucose,Urine (UA) Negative (Negative); Ketones,Urine Negative (Negative); Leukocyte Esterase,Urine Negative (Negative); Nitrite,Urine Negative (Negative); Protein,Urine Negative (Negative); Urobilinogen,Urine <2.0 mg/dL (<2.0)
[2018-09-07 17:26] LABS: Calcium 9.6 mg/dL (8.4-10.2)
[2018-09-07 17:32] LABS: Amphetamine Screen,Urine Not Detected (NotDetected); Barbiturate Screen,Urine Not Detected (NotDetected); Benzodiazepines Screen,Urine Detected (NotDetected); Cocaine Screen,Urine Not Detected (NotDetected); Methadone Screen, Urine Not Detected (NotDetected); Opiate Screen,Urine Detected (NotDetected); Oxycodone Screen, Urine Not Detected (NotDetected); Phencyclidine Screen,Urine Not Detected (NotDetected); Tricyclic Antidepressant,Urine Not Detected (NotDetected); Urn Cannabinoid Scrn Not Detected (NotDetected)
[2018-09-07 17:35] LABS: Magnesium 2.1 mg/dL (1.6-2.3); Potassium 4.8 mmol/L (3.5-5.1)
[2018-09-07] MEDS ORDERED: ONDANSETRON 4 MG/2 ML VIAL IVP STA (17:35)
[2018-09-07 17:41] VITALS: RESP 18
--- NOTE | 2018-09-07 17:46 | CT ---
EXAMINATION TYPE: CT brain kathi kern DATE OF EXAM: 09/07/2018 COMPARISON: CT brain 04/14/2014 HISTORY: Syncope, fell and hit head. Neck pain. Headache. CT DLP: 1296.5 mGycm Automated exposure control for dose reduction was used. TECHNIQUE: CT scan of the head and cervical spine are performed without contrast. FINDINGS: Ventricles of normal size. There is no mass effect nor midline shift. There is no sign of intracranial hemorrhage. The calvarium is intact. There is posterior fusion surgery at C5-6. Vertebra have normal alignment. There is some hardware in the disc space at C5-6. The skull base is intact. I see no compression fracture of the cervical spine . IMPRESSION: Negative CT scan of the brain. No change. Previous cervical spine surgery. No acute abnormality. No fracture seen. Laminectomy defect.
[2018-09-07 18:26] VITALS: BP 160/99; PULSE 56
== END 2018-09-07 18:55 | disposition home or self-care (01) ==
LOC: EC 15:54
DX: R55 Syncope and collapse (principal); R00.1 Bradycardia, unspecified; S09.90XA Unspecified injury of head, initial encounter; M79.7 Fibromyalgia; K21.9 Gastro-esophageal reflux disease without esophagitis; M19.90 Unspecified osteoarthritis, unspecified site; K58.9 Irritable bowel syndrome, unspecified; E07.9 Disorder of thyroid, unspecified; N30.10 Interstitial cystitis (chronic) without hematuria; F32.9 Major depressive disorder, single episode, unspecified; F41.9 Anxiety disorder, unspecified; F17.200 Nicotine dependence, unspecified, uncomplicated; Z88.5 Allergy status to narcotic agent; Z88.8 Allergy status to other drugs, medicaments and biological substances; Z79.1 Long term (current) use of non-steroidal anti-inflammatories (NSAID); Z79.899 Other long term (current) drug therapy; Z86.69 Personal history of other diseases of the nervous system and sense organs; Z98.1 Arthrodesis status; Z96.0 Presence of urogenital implants; Z98.890 Other specified postprocedural states; W01.10XA Fall on same level from slipping, tripping and stumbling with subsequent striking against unspecified object, initial encounter
CPT/HCPCS: 36415; 93005; 80048; 83735; 85025; 81003; 80306; 72125; 70450; 99284; 96374; 96375; J2270; J2405

== ENCOUNTER → 2019-05-02 | Outpatient (CLI) | payer MEDICARE, BC ==
--- NOTE | 2019-05-03 08:04 | US ---
EXAMINATION TYPE: US kidneys/renal and bladder DATE OF EXAM: 05/02/2019 COMPARISON: NONE CLINICAL HISTORY: R10.2 Pelvic Pain. Right pelvic pain, hematuria EXAM MEASUREMENTS: Right Kidney: 10.1 x 4.7 x 4.5 cm Left Kidney: 9.7 x 4.5 x 4.3 cm Right Kidney: Prominent column of Neil. There are tiny echogenic foci that could relate to small n onshadowing calculi or prominent renal sinus fat. Left Kidney: There are tiny echogenic foci that could relate to small nonshadowing calculi or promine nt renal sinus fat. Bladder: wnl Bilateral Jets seen: left jet not seen There is no evidence for hydronephrosis at this point in time. No masses are identified. The urina ry bladder is anechoic. Bilateral ureteral jets are not seen. IMPRESSION: No sonographic evidence of hydronephrosis/obstructive uropathy. There are multiple puncta te nonshadowing bilateral foci that could relate to their small nonobstructing renal calculi or promi nent renal sinus fat. CT abdomen without contrast could evaluate for very small calculi.
== END | disposition home or self-care (01) ==
LOC: RADUSWWP 15:44
PROVIDERS: ATTEND Urology
DX: R93.421 Abnormal radiologic findings on diagnostic imaging of right kidney (principal); R93.422 Abnormal radiologic findings on diagnostic imaging of left kidney; R10.9 Unspecified abdominal pain
CPT/HCPCS: 76770

== ENCOUNTER → 2019-09-26 | Outpatient (CLI) | payer MEDICARE, BC ==
--- NOTE | 2019-09-26 10:41 | MM ---
Reason for exam: additional evaluation requested from prior study. Last mammogram was performed 1 year and 3 months ago. History: Patient is postmenopausal. Family history of breast cancer in maternal aunt at age 63 and breast cancer in mother at age 60. Benign US biopsy breast VAD LT of the left breast, January 25, 2016. Benign excisional biopsy of the left breast, March 13, 2001. Took estrogen for 12 years beginning at age 41. Physical Findings: Nurse did not find any significant physical abnormalities on exam. MG 3D Diag Mammo W/Cad JUSTIN Bilateral CC and MLO view(s) were taken. Prior study comparison: June 22, 2018, bilateral MG 3d screening mammo w/cad. March 13, 2017, bilateral MG 3d diag mammo w/cad JUSTIN. The breast tissue is heterogeneously dense. This may lower the sensitivity of mammography. No suspicious abnormality in the right breast. New left lateral asymmetry measuring 6mm posterior to the coil marker and anterior to the excision site on CC. This improves on spot compression view. These results were verbally communicated with the patient and result sheet given to the patient on 09/26/19. ASSESSMENT: Benign, BI-RAD 2 RECOMMENDATION: Routine screening mammogram of both breasts in 1 year.
--- NOTE | 2019-09-26 10:43 | USB ---
Reason for exam: additional evaluation requested from prior study. History: Patient is postmenopausal. Family history of breast cancer in maternal aunt at age 63 and breast cancer in mother at age 60. Benign US biopsy breast VAD LT of the left breast, January 25, 2016. Benign excisional biopsy of the left breast, March 13, 2001. Took estrogen for 12 years beginning at age 41. US Breast BILAT Right complete breast ultrasound includes all four quadrants, the retroareolar region and axilla. Finding demonstrates no cystic or solid lesion seen. Left complete breast ultrasound includes all four quadrants, the retroareolar region and axilla. Finding demonstrates no cystic or solid lesion seen. No suspicious sonographic finding. These results were verbally communicated with the patient and result sheet given to the patient on 09/26/19. ASSESSMENT: Negative, BI-RAD 1 RECOMMENDATION: Routine screening mammogram of both breasts in 1 year.
== END | disposition home or self-care (01) ==
LOC: RADMAMWWP 07:05
PROVIDERS: ATTEND Internal Medicine
DX: R92.8 Other abnormal and inconclusive findings on diagnostic imaging of breast (principal); N63.0 Unspecified lump in unspecified breast
CPT/HCPCS: 77066; 76641; G0279; 77062

== ENCOUNTER → 2020-03-27 | Outpatient (CLI) | payer MEDICARE, BC | END | disposition home or self-care (01) | LOC: RADCTMAIN 16:30 | DX: Z53.9 Procedure and treatment not carried out, unspecified reason (principal) ==

== ENCOUNTER → 2020-04-30 | Outpatient (CLI) | payer MEDICARE, BC | END | disposition home or self-care (01) | LOC: RADMRIMAIN 12:10 | DX: Z53.9 Procedure and treatment not carried out, unspecified reason (principal) ==

== ENCOUNTER → 2020-05-05 | Outpatient (CLI) | payer MEDICARE, BC ==
--- NOTE | 2020-05-05 13:23 | CT ---
EXAMINATION TYPE: CT brain wo con DATE OF EXAM: 05/05/2020 HISTORY: Headache CT DLP: 1108.4 mGycm. Automated Exposure Control for Dose Reduction was Utilized. TECHNIQUE: CT scan of the head is performed without contrast. COMPARISON: 09/07/2018 CT brain FINDINGS: There is no acute intracranial hemorrhage, midline shift, or mass effect identified. Brain parenchyma appears age-appropriate. The ventricles, sulci, and cisterns are normal in size and configuration. No extra-axial fluid collection. Bones and extracranial soft tissues are intact. The globes are gross ly symmetric. Visualized sinuses and mastoid air cells are clear. IMPRESSION: No acute intracranial hemorrhage, midline shift, or mass effect.
== END | disposition home or self-care (01) ==
LOC: RADCTMAIN 08:04
PROVIDERS: ATTEND Internal Medicine
DX: G44.329 Chronic post-traumatic headache, not intractable (principal)
CPT/HCPCS: 70450

== ENCOUNTER → 2020-06-17 | Outpatient (CLI) | payer MEDICARE, BC ==
--- NOTE | 2020-06-17 08:31 | CT ---
EXAMINATION TYPE: CT sinus wo con DATE OF EXAM: 06/17/2020 COMPARISON: Prior sinus CT March 29, 2018. CT brain May 05, 2020 HISTORY: Chronic sinusitis order. Facial pain and headaches for [address] DLP: 606 mGycm. Automated Exposure Control for Dose Reduction was Utilized. TECHNIQUE: CT scan of the sinuses is performed without contrast, axial images are obtained, coronal r eformatted images are also reviewed. FINDINGS: Tiny 3 mm mucous retention cyst or polyp anterior medial left sphenoid sinusitis measures 2 8 remains present. Remainder of paranasal sinuses grossly clear on today's study without suspicious opacification or air-fluid level The surgically treated ostiomeatal complex is patent bilaterally on coronal image 20 for reference. Mild left-sided antral mucosal thickening noted. Visualized portion of mastoid air cells show no abnormal opacification. The globes are intact bilate rally. Visualized brain parenchyma shows mild diffuse age-related cerebral atrophy. IMPRESSION: Mild chronic paranasal sinus disease. No acute sinusitis.
== END | disposition home or self-care (01) ==
LOC: RADCTMAIN 07:54
PROVIDERS: ATTEND Internal Medicine
DX: J34.89 Other specified disorders of nose and nasal sinuses (principal); J32.9 Chronic sinusitis, unspecified
CPT/HCPCS: 70486

== ENCOUNTER → 2020-06-29 | Outpatient (CLI) | payer MEDICARE, BC ==
--- NOTE | 2020-06-30 06:55 | XR ---
EXAMINATION TYPE: XR shoulder complete BILAT DATE OF EXAM: 06/29/2020 CLINICAL HISTORY: pain TECHNIQUE: Three views of the bilateral shoulder are obtained. COMPARISON: None FINDINGS: There is no acute fracture/dislocation evident. The acromioclavicular and glenohumeral zoraida int spaces appear mildly narrowed.. The visualized ribs are intact and unremarkable. IMPRESSION: 1. There is no acute fracture or dislocation. ICD 10 NO FRACTURE, INITIAL EVALUATION
--- NOTE | 2020-06-30 06:55 | XR ---
EXAMINATION TYPE: XR hand complete bilateral DATE OF EXAM: 06/29/2020 CLINICAL HISTORY: pain TECHNIQUE: Frontal, lateral and oblique images of the bilateral hands are obtained. COMPARISON: None. FINDINGS: There is no acute fracture/dislocation evident. The joint spaces appear within normal limi ts. The overlying soft tissue appears unremarkable. IMPRESSION: There is no acute fracture or dislocation ICD 10 NO FRACTURE, INITIAL EVALUATION
== END | disposition home or self-care (01) ==
LOC: RADXRMAIN 14:19
PROVIDERS: ATTEND Internal Medicine
DX: M25.512 Pain in left shoulder (principal); M25.511 Pain in right shoulder; M79.642 Pain in left hand; M79.641 Pain in right hand; Z82.61 Family history of arthritis

== ENCOUNTER → 2020-06-29 | Outpatient (CLI) | payer MEDICARE, BC ==
--- NOTE | 2020-06-29 15:45 | MR ---
MRI CERVICAL SPINE: CLINICAL HISTORY: Cervical spondylosis with myelopathy per order. Headaches with neck pain for 5 year s. TECHNIQUE: Multiplanar, multisequence imaging of the cervical spine is performed without IV contrast. COMPARISON: Prior MRI cervical spine September 25, 2015. CT cervical spine September 07, 2018. FINDINGS: Sagittal images of the cervical spine show the craniocervical junction to remain within nor mal limits. The cervical and upper thoracic spinal cord remains normal in caliber and signal. Verte bral alignment is stable. Artifact from metallic disc material C5-C6 disc space redemonstrated. There is artifact from posterior fusion hardware C5-C6 level with successful posterior decompression on cu rrent study new from the old MRI. The bone marrow signal intensity is within normal limits above and below surgical levels. Axial images show C2-C3 level to appear within normal limits. Axial images at C3-C4 level show focal broad-based posterior disc protrusion with right foraminal dis c protrusion component and uncovertebral facet degenerative changes. There is moderate right and mild to moderate left-sided neural foraminal narrowing. No spinal canal stenosis at this level sagittal i mage 7 and axial image 39 versus prior MRI. Axial images at C4-C5 level left-sided uncovertebral facet degenerative changes contributing to moder ate left-sided neural foraminal narrowing. Some effacement of the posterolateral thecal sac is presen t bilaterally. Axial images at C5-C6 level show successful posterior decompression. Artifact from anterior posterior surgical hardware appear patent bilateral neural foramina. Axial images at C6-C7 level shows broad-based posterior disc protrusion effacing the anterior thecal sac on image 18, patent bilateral neural foramina. Axial images at C7-T1 level appear within normal limits. IMPRESSION: Interval successful posterior decompression at C5-C6 level. Interval progressive degenera tive changes C6-C7 level and noted C3-C4 level were most prominent spinal canal stenosis is now prese nt versus prior MRI. Further details as discussed above.
== END | disposition home or self-care (01) ==
LOC: RADMRIMAIN 14:13
DX: M47.12 Other spondylosis with myelopathy, cervical region (principal)
CPT/HCPCS: 72141

== ENCOUNTER → 2020-10-30 | Outpatient (CLI) | payer MEDICARE, BC ==
--- NOTE | 2020-10-30 16:42 | US ---
EXAMINATION TYPE: US carotid duplex BILAT DATE OF EXAM: 10/30/2020 COMPARISON: 03/13/2017 CLINICAL HISTORY: 65-year-old female R42 Dizziness. TECHNIQUE: Carotid duplex ultrasound examination. Indirect Doppler criteria was utilized. FINDINGS: EXAM MEASUREMENTS: RIGHT: Peak Systolic Velocity (PSV) cm/sec ----- Right CCA: 95.1 ----- Right ICA: 102 ----- Right ECA: 91.1 ICA/CCA ratio: 1.07 RIGHT: End Diastole cm/sec ----- Right CCA: 28.5 ----- Right ICA: 36.7 ----- Right ECA: 14.3 LEFT: Peak Systolic Velocity (PSV) cm/sec ----- Left CCA: 109 ----- Left ICA: 126 ----- Left ECA: 87 ICA/CCA ratio: 1.16 LEFT: End Diastole cm/sec ----- Left CCA: 41.4 ----- Left ICA: 39.4 ----- Left ECA: 12.9 VERTEBRALS (direction of flow): Right Vertebral: Antegrade Left Vertebral: Antegrade Rhythm: Normal No significant stenosis seen. IMPRESSION: Minimally elevated velocity left ICA but without any significant plaque identified. The finding is li lara a consequence of turbulent flow rather than mild stenosis. No hemodynamically significant actuarial intern al carotid artery stenosis on either side. Criteria for Assigning % of Stenosis / Diameter reduction (Estimation based on the indirect measurements of the internal carotid artery velocities (ICA PSV). 1. Normal (no stenosis)=ICA PSV < 125 cm/s: ratio < 2.0: ICA EDV<40 cm/s. 2. Less than 50% stenosis=ICA PSV < 125 cm/s: ratio < 2.0: ICA EDV<40 cm/s. 3. 50 to 69% stenosis=ICA PSV of 125 to 230 cm/s: ration 2.0 ? 4.0: ICA EDV 40-100 cm/s. 4. Greater than 70% stenosis to near occlusion= ICA PSV > 230 cm/s: ratio > 4.0: ICA EDV > 100 cm/s. 5. Near occlusion= ICA PSV velocities may be low or undetectable: variable ratio and ICA EDV. 6. Total occlusion=unable to detect flow.
== END ==
LOC: RADUSWWP 15:00
PROVIDERS: ATTEND Internal Medicine Cardiovascular Disease
DX: R42 Dizziness and giddiness (principal)
CPT/HCPCS: 93880

== ENCOUNTER → 2020-10-30 | Outpatient (CLI) | payer MEDICARE, BC ==
--- NOTE | 2020-10-30 16:47 | XR ---
EXAMINATION TYPE: XR lumbosacral spine 5 views DATE OF EXAM: 10/30/2020 Comparison: None Clinical History: 65-year-old female M47.817 Findings: Cholecystectomy clips. Additional surgical material just below the GE junction. 5 lumbar type vertebr al bodies. No pars interarticularis defect. Advanced degenerative disc disease L4-L5. Vertebral body heights are preserved and alignment is maintained. Facet arthropathy lower lumbar spine. Impression: 1. Advanced degenerative disc disease L4-L5. 2. Facet arthropathy lower lumbar spine. 3. No vertebral compression collapse or malalignment.
--- NOTE | 2020-10-30 16:48 | XR ---
EXAMINATION TYPE: AP view pelvis and 2 views left hip DATE OF EXAM: 10/30/2020 COMPARISON: NONE HISTORY: 65-year-old female M47.817 FINDINGS: SI joints appear symmetric and intact. Mild degenerative spurring of both hips along with some subcho ndral sclerosis along the acetabular roofs, left greater than right. No acute fracture, subluxation, or dislocation. IMPRESSION: No acute osseous abnormality seen. Mild left greater than right hip OA.
== END ==
LOC: RADXRMAIN 15:27
PROVIDERS: ATTEND Internal Medicine
DX: M51.36 Other intervertebral disc degeneration, lumbar region (principal); M47.816 Spondylosis without myelopathy or radiculopathy, lumbar region; M16.0 Bilateral primary osteoarthritis of hip
CPT/HCPCS: 72110; 73502

== ENCOUNTER → 2020-11-25 | Outpatient (CLI) | payer MEDICARE, BC ==
[~2020-11-25] MED LIST changes: -IV FLUID CONTINUATION 1,000 ML IV ONE; -LACTATED RINGERS 1,000 ML IV ONE; -LIDOCAINE 1% 20 ML VIAL (10MG/ML) FOR IV START INTRADERMA ONE; +REGADENOSON 0.4 MG/5 ML SYRINGE IV PRN
--- NOTE | 2020-11-25 11:35 | NM ---
EXAMINATION TYPE: NM stress lexiscan cardiolite DATE OF EXAM: 11/25/2020 COMPARISON: NONE HISTORY: R00.2 Palpitations, R07.2 Precordial pain TECHNIQUE: After the intravenous administration of 9.2 mCi Tc 99m Sestamibi - Cardiolite resting SPE CT images acquired 45 minutes post injection. The patient received 0.4mg Lexiscan, 24.8 mCi Tc 99m Sestamibi - Stress images obtained [address] injection FINDINGS: Review of stress and rest SPECT images demonstrates no distinct perfusion abnormality. Gated analysi s shows normal wall motion with an estimated left ventricular ejection fraction of 70 %. IMPRESSION: No scintigraphic evidence for reversible ischemia.
--- NOTE | 2020-11-25 15:21 | EST ---
EXERCISE STRESS AGE: 65 SEX: Female HT: 5'8" WT: 170 lbs PROTOCOL: Lexiscan Cardiolite STAGE: DURATION OF EXERCISE: HEART RATE REST: 63 BLOOD PRESSURE REST: 141/86 MAXIMUM HEART RATE ACHIEVED: 81 MAXIMUM BLOOD PRESSURE: 143/80 85% MPHR: 133 100% MPHR: 157 METS: INDICATIONS: Palpitations. CLINICAL INFORMATION: Baseline heart rate 63 beats per minute. Baseline blood pressure 141/86 mmHg. Patient received Lexiscan infusion per protocol. No change in heart rate or blood pressure. No change in ECG noted. Baseline ECG shows sinus rhythm with normal ST segments. No arrhythmias noted. Nuclear portion of stress test will be reported separately. MMODL / IJN: [id number] /
== END | disposition home or self-care (01) ==
LOC: RADNMMAIN 08:06
PROVIDERS: ATTEND Internal Medicine Cardiovascular Disease
DX: R07.9 Chest pain, unspecified (principal)
CPT/HCPCS: 93017; 78452; A9500; J2785

== ENCOUNTER → 2021-07-13 | Outpatient (CLI) | payer MEDICARE, BC ==
--- NOTE | 2021-07-14 08:00 | CT ---
EXAMINATION TYPE: CT abdomen pelvis wo/w con DATE OF EXAM: 07/13/2021 COMPARISON: HISTORY: flank pain CT DLP: 2281 mGycm CONTRAST: CT scan of the abdomen and pelvis is performed with Oral Contrast and without and with IV Contrast, p atient injected with 100 mL of Isovue 300. FINDINGS: LUNG BASES-: No visible nodule. No infiltrate. LIVER/GB: The gallbladder surgically absent. No space occupying hepatic lesion. Biliary tree is of normal caliber. PANCREAS: No inflammation. No distinct mass. SPLEEN: No splenic enlargement. 1 cm splenic cyst. ADRENALS: No nodule. No thickening. KIDNEYS/BLADDER: No hydronephrosis. No nephrolithiasis. No distinct renal mass. Urinary bladder g rossly unremarkable. BOWEL: Normal appendix. Normal bowel caliber. No inflammation. Severe fecal stasis. GENITAL ORGANS: No gross abnormality. LYMPH NODES: No greater than 1cm abdominal or pelvic lymph nodes are appreciated. AORTA: No significant abnormality. OSSEOUS STRUCTURES: No significant abnormality is seen. OTHER: No significant additional abnormality is seen. IMPRESSION: 1. Constipation. 2. Splenic cyst.
== END | disposition home or self-care (01) ==
LOC: RADCTMAIN 16:33
PROVIDERS: ATTEND Urology
DX: K59.00 Constipation, unspecified (principal); D73.4 Cyst of spleen
CPT/HCPCS: 74178; Q9967

== ENCOUNTER → 2021-07-28 | Outpatient (CLI) | payer MEDICARE, BC ==
--- NOTE | 2021-07-29 08:59 | BD ---
EXAMINATION TYPE: Axial Bone Density DATE OF EXAM: 07/28/2021 COMPARISON: NONE CLINICAL HISTORY: Height: 68 Weight: 166.7 FRAX RISK QUESTIONS: Alcohol (3 or more units per day): no Family History (Parent hip fracture): no Glucocorticoids (More than 3mos): no (Ex: prednisone, prednisolone, methylprednisolone, dexamethasone, and hydrocortisone). History of Fracture in Adulthood: no Secondary Osteoporosis: 1. Type 1 Diabetes: no 2. Hyperthyroidism: no 3. Menopause before 45: yes 4. Malnutrition: no 5. Chronic liver disease: no Rheumatoid Arthritis: no Current Tobacco Use: yes RISK FACTORS HISTORY OF: Surgery to Spine/Hip(right/left)/Wrist (right/left): c spine Family History of Osteoporosis: yes Active: yes Diet low in dairy products/other sources of calcium: yes Postmenopausal woman: yes Take estrogen and/or progesterone medications: yes How lon years Lost more than 2 inches in height since high school: no MEDICATIONS: Effexor, lamictal, protonix, celebrex, xanax, valtrex Thyroid Medications: synthroid How Lon years Additional History: EXAM MEASUREMENTS: Bone mineral densitometry was performed using the Optovue System. Bone mineral density as measured about the Lumbar spine is: ----- L1-L4(G/cm2): 1.243 T Score Values are as follows: ----- L2: -0.7 ----- L3: 0.2 ----- L4: 2.3 ----- L1-L4: 0.5 Bone mineral density has: decreased -0.5 % since study of: 08.31.2016 Bone mineral density about the R hip (g/cm2): 0.861 Bone mineral density about the L hip (g/cm2): 0.863 T Score values are as follows: -----R Neck: -1.3 -----L Neck: -1.3 -----R Total: -1.4 -----L Total: -1.3 Bone mineral density has: decreased -7.4 % since study of: 08.31.2016 IMPRESSION: Osteopenia NOTE: T-SCORE=SD OF THE YOUNG ADULT MEAN.
--- NOTE | 2021-07-29 12:35 | MM ---
Reason for exam: screening (asymptomatic). Last mammogram was performed 1 year and 10 months ago. History: Patient is postmenopausal. Family history of breast cancer in maternal aunt at age 63 and breast cancer in mother at age 60. Benign US biopsy breast VAD LT of the left breast, January 25, 2016. Benign excisional biopsy of the left breast, March 13, 2001. Took estrogen for 12 years beginning at age 41. Taking progesterone. Taking other hormone. Physical Findings: A clinical breast exam by your physician is recommended on an annual basis and results should be correlated with mammographic findings. MG 3D Screening Mammo W/Cad Bilateral CC and MLO view(s) were taken. Prior study comparison: September 26, 2019, bilateral MG 3d diag mammo w/cad JUSTIN. June 22, 2018, bilateral MG 3d screening mammo w/cad. The breast tissue is heterogeneously dense. This may lower the sensitivity of mammography. There is no discrete abnormality. No significant changes when compared with prior studies. ASSESSMENT: Negative, BI-RAD 1 RECOMMENDATION: Routine screening mammogram of both breasts in 1 year.
== END | disposition home or self-care (01) ==
LOC: RADMAMWWP 15:49
PROVIDERS: ATTEND Internal Medicine
DX: Z12.31 Encounter for screening mammogram for malignant neoplasm of breast (principal); M85.89 Other specified disorders of bone density and structure, multiple sites; Z80.3 Family history of malignant neoplasm of breast; Z78.0 Asymptomatic menopausal state
CPT/HCPCS: 77063; 77067; 77080

== ENCOUNTER → 2021-09-03 | Outpatient (CLI) | payer MEDICARE, BC ==
--- NOTE | 2021-09-03 18:18 | FL ---
EXAMINATION: Small bowel follow through DATE: 09/03/2021 CLINICAL INDICATION: 66-year-old female D64.9, anemia. COMPARISON: Correlation CT 07/13/2021 Total Fluoroscopy Time: 37 seconds 18 images obtained. FINDINGS: Initial gas meter checker image shows nonobstructive bowel gas pattern, moderate stool burden, cholecystectomy cl ips, and additional surgical material below the GE junction relating to sleeve gastrectomy. Following administration of barium, serial films were carried out to 2.5 hours. Barium is seen to franck ch the colon at 2 hours. Loops of jejunum and ileum are compressed and examined under fluoroscopy. The small bowel loops have a normal-caliber. Mucosal pattern is within normal limits. No intrinsic or extrinsic process is suspected. IMPRESSION: Normal small bowel transit time of 2 hours. No specific abnormality seen on small bowel follow-throug h.
== END | disposition home or self-care (01) ==
LOC: RADFLMAIN 07:51
PROVIDERS: ATTEND Internal Medicine
DX: D64.9 Anemia, unspecified (principal)
CPT/HCPCS: 74250

== ENCOUNTER → 2022-02-22 | Outpatient (CLI) | payer MEDICARE, BC ==
--- NOTE | 2022-02-22 19:08 | XR ---
EXAMINATION TYPE: XR cervical spine limited DATE OF EXAM: 02/22/2022 TECHNIQUE: Frontal, lateral, and open mouth view of the cervical spine are obtained. HISTORY: [id number] COMPARISON: Prior cervical spine x-ray November 25, 2021 FINDINGS: The cervical spine is visualized from C1 thru the bottom of C7 level, it is stable and sat isfactory in alignment. The pre-vertebral soft tissue remains within normal limits. The C1-C2 artic ulation is within normal limits on the open mouth view. Bilateral posterior fusion hardware C3-C6 lev els is redemonstrated. Artificial disc material and anterior surgical change C5-C6 level redemonstrat ed. C6-C7 level shows moderate to severe anterior disc space narrowing and spurring with endplate scl erosis. Overlying soft tissue is unremarkable. IMPRESSION: As above. No significant change from prior.
== END | disposition home or self-care (01) ==
LOC: RADXRMAIN 16:13
DX: M47.812 Spondylosis without myelopathy or radiculopathy, cervical region (principal); M99.71 Connective tissue and disc stenosis of intervertebral foramina of cervical region
CPT/HCPCS: 72040

== ENCOUNTER → 2022-05-02 | Outpatient (CLI) | payer MEDICARE, BC ==
--- NOTE | 2022-05-02 08:12 | CT ---
EXAMINATION TYPE: CT cervical spine wo con CT DLP: 351.80 mGycm, Automated exposure control for dose reduction was used. DATE OF EXAM: 05/02/2022 7:34 AM COMPARISON: THIS EXAM WAS READ DURING PACS DOWNTIME, NO PRIORS AVAILABLE.. CLINICAL INDICATION:Female, 67 years old with history of M47.812 spondylosis, post op neck TECHNIQUE: Axial CT images from the skull base to the inferior aspect of T2 we obtained without intra venous contrast. Coronal and sagittal reformatted images were also reviewed. FINDINGS: Fracture: None. Osseous structures: Postsurgical changes involving C3-C6. The posterior hardware appears intact. Ante rior fixation at C5-C6 is present. There is osteophyte formation and disc space narrowing at C6-C7. L aminectomy changes are noted throughout the surgical levels including C4, C5 and C6. Vertebral alignment: There is straightening of the normal alignment likely postsurgical in etiology. Spinal canal/Neural Foramina: No evidence of significant spinal canal narrowing. No evidence for sign ificant neural foraminal stenosis. Neck soft tissues: Prevertebral soft tissues are within normal limits. Other: The airway is patent. The lung apices are clear. IMPRESSION: 1. No evidence of cervical spine fracture. 2. Postsurgical changes with mild multilevel degenerative disc disease.
== END | disposition home or self-care (01) ==
LOC: RADCTMAIN 06:49
DX: M50.322 Other cervical disc degeneration at C5-C6 level (principal)
CPT/HCPCS: 72125

== ENCOUNTER → 2022-07-28 | Outpatient (CLI) | payer MEDICARE, BC ==
--- NOTE | 2022-07-28 21:23 | CTL ---
EXAMINATION TYPE: CT Low Dose Lung DATE OF EXAM: 07/28/2022 4:33 PM CLINICAL INDICATION:Female, 67 years old with history of Z87.891 Personal hx nicotine dependence; cur rent smoker x30 years. 1 pack a day. , history of tobacco use. COMPARISON: None. TECHNIQUE: Multiple axial non-contrast scans were obtained from approximately the lung apices through the upper abdomen. Coronal and sagittal reformatted images were obtained. Low dose technique was uti lized. CT DLP: 93.30 mGycm, Automated exposure control for dose reduction was used. CT Contrast: Contrast used: None Oral contrast used: None FINDINGS: ======== Lack of intravenous contrast and low dose technique limits the evaluation of the vascular and soft ti ssue structures. LUNGS: No evidence of emphysema or pulmonary fibrosis. No evidence of focal consolidation, pneumothor ax or pleural effusion. Some atelectasis in the left lung base both posteriorly and laterally. Nodules: RUL: 3 mm image 19 series 6 RML: Spiculated pulmonary nodule measuring 16 x 12 x 13 mm. Image 39 RLL: None. KIRK: None. LLL: 3 mm image 38 AIRWAY: Patent and unremarkable. HEART: Size within normal limits. MEDIASTINUM: There is no enlarged mediastinal lymph nodes along the right low paratracheal region talia suring up to 18 mm in short axis. Additional lymph nodes are felt to be present more superiorly but a re suboptimally visualized without IV contrast. VASCULATURE: No aortic aneurysm. MUSCULOSKELETAL: No acute osseous abnormalities SOFT TISSUES/LYMPH NODES: Unremarkable. LOWER NECK: Prominent right supraclavicular lymph node measuring 6 mm short axis. UPPER ABDOMEN: The gallbladder surgically absent. Postsurgical changes to the gastric lumen. IMPRESSION: 1. Spiculated right middle lobe pulmonary nodule measuring up to 16 mm. 2. Enlarged mediastinal lymph node concerning for metastatic disease. 3. Additional scattered 3 mm pulmonary nodules attention follow-up imaging. CT LUNG RAD AND CT CHEST RECOMMENDATION: Lung-Rad 4A Suspicious: Follow-up PET/CT is recommended . S Modifier (other clinically significant findings): No Recommend smoking cessation (if current smoker), or continuation of smoking cessation (if prior smoke r). Annual screening for lung cancer with low-dose computed tomography is recommended in adults ages 55 to 77 years who have a 30 pack-year smoking history and currently smoke or have quit within the pa st 15 years. Screening should be discontinued once a person has not smoked for 15 years or develops a health problem that substantially limits life expectancy or the ability or willingness to have curat jesús lung surgery. Lung rads 2021 [email or web address]
== END | disposition home or self-care (01) ==
LOC: RADCTMAIN 14:59
PROVIDERS: ATTEND Internal Medicine
DX: Z12.2 Encounter for screening for malignant neoplasm of respiratory organs (principal); R91.8 Other nonspecific abnormal finding of lung field; R59.0 Localized enlarged lymph nodes; Z87.891 Personal history of nicotine dependence
CPT/HCPCS: 71271

== ENCOUNTER → 2022-12-05 | Outpatient (CLI) | payer MEDICARE, BC ==
--- NOTE | 2022-12-05 15:48 | CT ---
EXAMINATION TYPE: CT cervical spine wo con CT DLP: 421 mGycm, Automated exposure control for dose reduction was used. DATE OF EXAM: 12/05/2022 3:34 PM COMPARISON: CT cervical spine 05/02/2022. CLINICAL INDICATION:Female, 67 years old with history of M47.812; PHH, Spondylosis w/o myelopathy or radiculopathy TECHNIQUE: Axial CT images from the skull base to the inferior aspect of T2 we obtained without intra venous contrast. Coronal and sagittal reformatted images were also reviewed. FINDINGS: Fracture: None. Osseous structures: Postsurgical changes involving C3-C6 redemonstrated. The hardware appears intact. Anterior fixation at C5-C6 is again present. There is osteophyte formation and disc space narrowing at C6-C7. Laminectomy changes are noted throughout the surgical levels including C4, C5 and C6. Vertebral alignment: There is similar straightening of the normal alignment likely postsurgical in et iology. Spinal canal/Neural Foramina: No evidence of significant spinal canal narrowing. No evidence for sign ificant neural foraminal stenosis. Neck soft tissues: Prevertebral soft tissues are within normal limits. Other: The airway is patent. Biapical pleural-parenchymal scarring. IMPRESSION: 1. No evidence of cervical spine fracture. 2. Similar post surgical changes with mild multilevel degenerative disc disease.
== END ==
LOC: RADCTMAIN 15:12
DX: M47.812 Spondylosis without myelopathy or radiculopathy, cervical region (principal); M50.322 Other cervical disc degeneration at C5-C6 level
CPT/HCPCS: 72125

== ENCOUNTER → 2022-12-15 | Outpatient (CLI) | payer MEDICARE, BC ==
--- NOTE | 2022-12-15 12:47 | CT ---
EXAMINATION TYPE: CT chest wo con DATE OF EXAM: 12/15/2022 COMPARISON: 07/28/2022 HISTORY: Follow-up nodule Unenhanced CT of the chest was performed with lung and mediastinal window settings submitted. The la ck of contrast limits evaluation of the vascular, mediastinal and parenchymal structures including th e upper abdomen. Please note direct comparison is difficult given different technique utilized previously. LUNGS: Nodular density within the right middle lobe seen previously measuring 16 mm is significantly smaller in size and measures 7 mm currently. No new nodules are seen. There is calcified granuloma le ft upper lobe which is stable. No pleural effusion or volume loss. No airspace consolidation. MEDIASTINUM/LATASHA: Thoracic aorta is of normal caliber with limited evaluation given lack of contrast . The heart is not enlarged. No evidence for mediastinal mass. No lymph nodes greater than 1cm. P reviously noted enlarged low right paratracheal lymph node has normalized in size and measures 0.95 c m. UPPER ABDOMEN: No significant abnormality is seen. OTHER: No significant other abnormality. IMPRESSION: 1. Right middle lobe nodule is considerably smaller in size at current measurement of 7 mm versus 16 mm previously. In addition low right paratracheal lymph node has normalized. The findings may have b een infectious in etiology with reactive lymph node. Continued follow-up however is recommended with 3 month low-dose CT recommended.
== END | disposition home or self-care (01) ==
LOC: RADCTMAIN 11:37
PROVIDERS: ATTEND Internal Medicine Pulmonary Disease
DX: J84.89 Other specified interstitial pulmonary diseases (principal); R91.8 Other nonspecific abnormal finding of lung field
CPT/HCPCS: 71250

== ENCOUNTER → 2023-02-07 | Outpatient (CLI) | payer MEDICARE, BC ==
--- NOTE | 2023-02-07 21:47 | MR ---
EXAMINATION TYPE: MR cervical spine wo con DATE OF EXAM: 02/07/2023 COMPARISON: 06/29/2020 HISTORY: 68-year-old female M48.02, Post surgery f/u, headaches, fusion C3-6 TECHNIQUE: Multiplanar, multisequence images of the cervical spine were obtained without IV contrast. FINDINGS: No craniocervical junction abnormality, predental space widening, or prevertebral soft tissue swellin g. Postsurgical change of prior ACDF C5-C6 and posterior cervical fusion with laminectomies from C3 thro ugh C6 levels. There has been resolution of the previous spinal canal narrowing at C3-C4 secondary to interval timbo ectomy. There is mild narrowing now present at C2-C3 secondary to minimal disc bulge and some ligamen duke flavum thickening abutting the dorsal cord but without any cord compression. Moderate degenerative disc disease below the fusion at C6 and C7. Discussed by complex tear chelsyin g upon to the ventral thecal sac but without any significant spinal canal stenosis. Normal course and signal intensity of the cervical spinal cord. No suspicious bone marrow replacement. Alignment is maintained. Multilevel hypertrophic facet and uncovertebral joint arthropathy. At C2-C3, changes result in moderate left neural foraminal stenosis. At C3-C4, changes result in mild right neuroforaminal stenosis. At C4-C5, there is resultant mild left neural foraminal stenosis. At C5-C6, changes result in mild bilateral neuroforaminal stenosis. At C6-C7, changes within [id number]-sm-aoeounhx bilateral neuroforaminal stenosis. IMPRESSION: 1. Previous C5-C6 ACDF. Interval extension of posterior cervical fusion now from C3 down through the C6 level with corresponding laminectomies. Resolution of the previous spinal canal narrowing at C3-C4 . 2. Mild narrowing of the spinal canal now at C2-C3 secondary to minimal disc bulge and ligamentum fla vum thickening abutting the dorsal cord. No cord compression. 3. Impression on the ventral thecal sac below the fusion at C6-C7 from disc osteophyte complex but wi thout significant spinal canal stenosis, similar to prior. 4. Variable mild and moderate neuroforaminal stenoses as outlined above.
== END | disposition home or self-care (01) ==
LOC: RADMRIMAIN 10:39
PROVIDERS: ATTEND Neurological Surgery
DX: M48.02 Spinal stenosis, cervical region (principal); M25.78 Osteophyte, vertebrae; M99.71 Connective tissue and disc stenosis of intervertebral foramina of cervical region
CPT/HCPCS: 72141

== ENCOUNTER → 2023-04-04 | Outpatient (CLI) | payer MEDICARE, BC ==
--- NOTE | 2023-04-04 14:06 | CT ---
EXAMINATION TYPE: CT chest wo con CT DLP: 486 mGycm, Automated exposure control for dose reduction was used. DATE OF EXAM: 04/04/2023 1:46 PM COMPARISON: 12/15/2022 CT chest. CLINICAL INDICATION:Female, 68 years old with history of Z87.448 PERSONAL HX OTHER DISEASES Z87.442 S TONES, Pulmonary nodule TECHNIQUE: Multiple axial images were obtained through the chest. Sagittal and coronal reformats were created for review. Contrast used: mL of (None if empty) Oral contrast used: (None if empty) FINDINGS: LUNGS/ PLEURA: No focal consolidation, pneumothorax or pleural effusion. There may be mild centrilobu lar emphysema changes. Left upper lung calcified granulomas present. There is a left upper lobe pulmo nary nodule series 4 image 36 measuring up to 6 mm. Left upper lobe calcified granuloma. Right lower lobe calcified granuloma. Right middle lobe pulmonary nodule now measuring 7 mm, previously 16 mm on 07/28/2022. AIRWAY: Patent and unremarkable. HEART: Size within normal limits. MEDIASTINUM: No gross evidence of adenopathy. VASCULATURE: No aortic aneurysm. MUSCULOSKELETAL: No acute osseous abnormalities SOFT TISSUES/LYMPH NODES: Unremarkable. LOWER NECK: No significant findings. UPPER ABDOMEN: Right upper quadrant surgical clip. Post surgical changes gastric lumen. IMPRESSION: 1. Right middle lobe pulmonary nodule is decrease in size now measuring 7 mm, previously 16 mm on . 2. Left upper lobe 6 mm pulmonary nodule not definitively seen on priors. Attention follow-up ganesh g consider 6-12 month follow-up.
== END | disposition home or self-care (01) ==
LOC: RADCTMAIN 13:17
PROVIDERS: ATTEND Internal Medicine
DX: R91.1 Solitary pulmonary nodule (principal); Z87.448 Personal history of other diseases of urinary system; Z87.442 Personal history of urinary calculi
CPT/HCPCS: 71250

== ENCOUNTER → 2023-06-30 | Outpatient (CLI) | payer MEDICARE, BC ==
--- NOTE | 2023-06-30 14:41 | XR ---
EXAMINATION TYPE: XR cervical spine limited DATE OF EXAM: 06/30/2023 2:38 PM INDICATION: Patient age:Female; 68 years old; Reason for study: Z98.1 Arthrodesis; [facility]. COMPARISON: Cervical spine radiographs 522, MR cervical spine 02/07/2023, CT cervical spine 12/05/2022 TECHNIQUE: The cervical spine was imaged in lateral, AP, and odontoid projections. FINDINGS: The cervical spine is visualized from C1 thru the bottom of C7 level with stable and satisfactory in alignment. The pre-vertebral soft tissue remains within normal limits. The C1-C2 articulation is within normal limits on the open mouth view. Bilateral posterior fusion hardware C3-C6 levels is redemonstrated. Artificial disc material and ante rior surgical change C5-C6 level redemonstrated. Hardware appears intact. C6-C7 level shows moderate to severe anterior disc space narrowing and spurring with endplate sclero sis again. Overlying soft tissue is unremarkable. IMPRESSION: As above. No significant change from prior.
== END | disposition home or self-care (01) ==
LOC: RADXRMAIN 14:21
PROVIDERS: ATTEND Neurological Surgery
DX: Z98.1 Arthrodesis status (principal)
CPT/HCPCS: 72040

== ENCOUNTER → 2023-10-27 | Outpatient (CLI) | payer MEDICARE, BC ==
--- NOTE | 2023-10-29 18:08 | CT ---
EXAMINATION TYPE: CT cervical spine wo con CT DLP: 394.3 mGycm, Automated exposure control for dose reduction was used. DATE OF EXAM: 10/27/2023 12:27 PM COMPARISON: 12/05/2022.. 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 Coronal and sagittal reformatted images were also reviewed. Contrast used: (if blank None) Oral contrast used: (if blank None) FINDINGS: Fracture: None. Osseous structures: Multilevel degenerative disc disease changes with endplate spurring and disc oste ophyte complex's. Fixation changes of the posterior elements at C3-C6. Hardware appears intact. No ev idence for hardware loosening. There is laminectomy changes at these levels. Fixation anteriorly at C 5-C6 noted. There is degeneration versus the C6-C7 with osteophyte formation. Vertebral alignment: Alignment within normal limits. Spinal canal/Neural Foramina: No evidence of significant spinal canal narrowing. Facet joint uncovert ebral joint arthropathy scattered throughout the cervical spine with varying degrees of neural forami nal stenosis. Neural femoral stenosis worse at C3-C4 on the left with moderate, C4-C5 with mild to mo derate bilateral, C5-C6 with moderate left, C6-C7 with moderate to severe left and moderate right. Neck soft tissues: Prevertebral soft tissues are within normal limits. Other: The airway is patent. The lung apices are clear. IMPRESSION: 1. No evidence of cervical spine fracture. 2. Post surgical changes with hardware intact. 3. No foraminal stenosis worse at C6-C7 with moderate to severe left and moderate right neural forami nal stenosis. 4. No evidence for significant spinal canal stenosis within the limitations of the exam. 5. Degeneration changes worse at the C6-C7 adjoining endplates.
== END | disposition home or self-care (01) ==
LOC: RADCTMAIN 11:45
PROVIDERS: ATTEND Neurological Surgery
DX: M47.812 Spondylosis without myelopathy or radiculopathy, cervical region (principal)
CPT/HCPCS: 72125

== ENCOUNTER → 2024-02-03 | Outpatient (CLI) | payer MEDICARE, BC ==
--- NOTE | 2024-02-09 13:31 | CT ---
EXAMINATION TYPE: CT chest wo con CT DLP: 279.4 mGycm, Automated exposure control for dose reduction was used. DATE OF EXAM: 02/03/2024 7:25 AM COMPARISON: 04/04/2023 CLINICAL INDICATION:Female, 69 years old with history of R91.1 NODULES;, lung nodule TECHNIQUE: Multiple axial images were obtained through the chest. Sagittal and coronal reformats were created for review. Contrast used: mL of (None if empty) Oral contrast used: (None if empty) FINDINGS: LUNGS/ PLEURA: Stable right middle lobe 6 mm pulmonary nodule series 4 image 38. Left upper lobe nodu le seen on prior is not definitively visualized. Suspected granuloma in the left upper lobe measuring 2 mm. No new or enlarging pulmonary nodules. No focal consolidation, pneumothorax or pleural effusio n. AIRWAY: Patent and unremarkable. HEART: Size within normal limits. MEDIASTINUM: No gross evidence of adenopathy. Stable right low paratracheal lymph node measuring 9 mm in short axis. VASCULATURE: No aortic aneurysm. MUSCULOSKELETAL: No acute osseous abnormalities SOFT TISSUES/LYMPH NODES: Unremarkable. LOWER NECK: No significant findings. UPPER ABDOMEN: No significant findings. IMPRESSION: 1. Stable right middle lobe 6 pulmonary nodule. No new or enlarging pulmonary nodules. No acute proc ess. 2. Resolution of prior left upper lobe pulmonary nodule.
== END | disposition home or self-care (01) ==
LOC: RADCTMAIN 07:06
PROVIDERS: ATTEND Internal Medicine
DX: R00.2 Palpitations (principal); R91.1 Solitary pulmonary nodule
CPT/HCPCS: 71250

== ENCOUNTER 2024-04-24 16:35 | Emergency (ER) | payer MEDICARE, BC ==
[2024-04-24 16:39] VITALS: TEMP 97.3
[2024-04-24 18:04] LABS: Basophils % (A) 1 %; Eosinophils # (A) 0.2 k/uL (0-0.7); Eosinophils % (A) 3 %; HGB 13.8 gm/dL (11.4-16.0); Lymphocytes # (A) 1.6 k/uL (1.0-4.8); Lymphocytes % (A) 30 %; MCH 30.4 pg (25.0-35.0); MCHC 32.8 g/dL (31.0-37.0); MCV 92.8 fL (80.0-100.0); Mean Platelet Volume 8.5; Monocytes # (A) 0.3 k/uL (0-1.0); Monocytes % (A) 6 %; Neutrophils # (A) 3.2 k/uL (1.3-7.7); Neutrophils % (A) 59 %; Platelet Count 254 k/uL (150-450); RBC 4.53 m/uL (3.80-5.40); RDW 13.2 % (11.5-15.5); WBC 5.4 k/uL (3.8-10.6)
[2024-04-24 18:16] LABS: ALT 20 U/L (4-34); African American GFR (CKD) 78 (>60 ml/min/1.73 sqM); Albumin 4.3 g/dL (3.5-5.0); Anion Gap 4 mmol/L; Blood Urea Nitrogen 9 mg/dL (7-17); Calcium 9.9 mg/dL (8.4-10.2); Carbon Dioxide 29 mmol/L (22-30); Chloride 105 mmol/L (98-107); Glucose 112 mg/dL (74-99); Lipase 137 U/L (23-300); Non-African American GFR(CKD) 67 (>60 ml/min/1.73 sqM); Sodium 138 mmol/L (137-145); Total Bilirubin 0.8 mg/dL (0.2-1.3); Total Protein 7.1 g/dL (6.3-8.2)
--- NOTE | 2024-04-24 18:17 | XR ---
EXAMINATION TYPE: XR chest 2V DATE OF EXAM: 04/24/2024 COMPARISON: 05/19/2015 INDICATION: Chest pain TECHNIQUE: Frontal and lateral views of the chest are obtained. FINDINGS: The heart size is normal. The pulmonary vasculature is normal. The lungs are clear. IMPRESSION: 1. No acute pulmonary process.
[2024-04-24 18:21] LABS: Magnesium 1.9 mg/dL (1.6-2.3)
[2024-04-24 18:22] LABS: AST 39 U/L (14-36); Alkaline Phosphatase 131 U/L (38-126)
[2024-04-24 18:25] LABS: Prothrombin Time 10.6 sec (10.0-12.5)
--- NOTE | 2024-04-24 19:07 | ED ---
Chest Pain HPI - General Chief Complaint: Chest Pain Stated Complaint: Chest Pain,Sob Time Seen by Provider: 04/24/24 16:58 Source: patient Mode of arrival: ambulatory Limitations: no limitations - History of Present Illness Initial Comments: 69-year-old female with past medical history of hiatal hernia who presents emergency department reporting epigastric pain. States that she laid down to take a nap. She when she awoke she had immense pain in her chest. States she is never had anything like this before. It was a burning sensation. The symptoms only lasted a minute before they went away. She denies any alleviating factors. She did take the morphine because it was time for her scheduled dose but the pain had already gone. She has no cardiac history. No history of DVT or PE. She denies calf pain or swelling. No shortness of breath. No nausea or vomiting. No fevers. No other alleviating, precipitating or modifying factors - Related Data Home Medications Medication Instructions Recorded Confirmed Levothyroxine Sodium [Synthroid] 50 mcg PO DAILY 04/14/14 04/24/24 traZODone HCL [Desyrel] 100 - 200 mg PO HS PRN 04/14/14 04/24/24 ALPRAZolam [Xanax XR] 1 mg PO TID 05/18/15 04/24/24 tiZANidine [Zanaflex] 4 mg PO Q8HR PRN 05/18/15 04/24/24 Albuterol Sulfate [Ventolin HFA] 1 - 2 puff INHALATION RT-QID PRN 04/24/24 04/24/24 Atorvastatin Calcium [Lipitor] 40 mg PO DAILY 04/24/24 04/24/24 DULoxetine HCL [Cymbalta] 120 mg PO DAILY 04/24/24 04/24/24 FLUoxetine HCL [PROzac] 20 mg PO DAILY 04/24/24 04/24/24 HYDROcodone/APAP 5-325MG [Preston 1 tab PO TID PRN 04/24/24 04/24/24 5-325] Linaclotide [Linzess] 290 mcg PO DAILY PRN 04/24/24 04/24/24 Morphine Sulfate ER [Ms Contin] 15 mg PO DAILY 04/24/24 04/24/24 Pantoprazole [Protonix] 40 mg PO DAILY 04/24/24 04/24/24 Pregabalin [Lyrica] 75 mg PO BID 04/24/24 04/24/24 flavoxATE HCL [Flavoxate HCl] 100 mg PO BID 04/24/24 04/24/24 lamoTRIgine 200 mg PO BID 04/24/24 04/24/24 Allergies Allergy/AdvReac Type Severity Reaction Status Date / Time atenolol AdvReac elevated BP Verified 04/24/24 18:18 morphine AdvReac hyper & Verified 04/24/24 18:18 paranoid scopolamine AdvReac Hallucinati Verified 04/24/24 18:18 ons Review of Systems ROS Statement: Those systems with pertinent positive or pertinent negative responses have been documented in the HPI. ROS Other: All systems not noted in ROS Statement are negative. Past Medical History Past Medical History: Fibromyalgia, GERD/Reflux, Musculoskeletal Disorder, Osteoarthritis (OA), Thyroid Disorder Additional Past Medical History / Comment(s): HX: IBS, lyme disease with delayed speech , interstitial cystitis, chronic headaches, ethmoid thickening History of Any Multi-Drug Resistant Organisms: None Reported Past Surgical History: Bariatric Surgery, Bladder Surgery, Cholecystectomy, Hysterectomy, Orthopedic Surgery Additional Past Surgical History / Comment(s): Anterior cervical neck fusion C5- 6. followed by posterior approach c5,C6 with 4 screws, and barbie, bladder suspension,interstim implant bladder, multiple sinus surgeries, gastric sleeve Past Anesthesia/Blood Transfusion Reactions: Postoperative Nausea & Vomiting (PONV) Past Psychological History: Anxiety, Depression Smoking Status: Current every day smoker, Unknown if ever smoked Past Alcohol Use History: None Reported Past Drug Use History: None Reported - Past Family History Father Family Medical History: Deep Vein Thrombosis (DVT) Mother Family Medical History: AFIB, Cancer Additional Family Medical History / Comment(s): breast cancer General Exam Limitations: no limitations General appearance: alert, in no apparent distress Head exam: Present: atraumatic, normocephalic, normal inspection Eye exam: Present: normal appearance, PERRL, EOMI. Absent: scleral icterus, conjunctival injection, periorbital swelling ENT exam: Present: normal exam, mucous membranes moist Neck exam: Present: normal inspection. Absent: tenderness, meningismus, lymphadenopathy Respiratory exam: Present: normal lung sounds bilaterally. Absent: respiratory distress, wheezes, rales, rhonchi, stridor Cardiovascular Exam: Present: regular rate, normal rhythm, normal heart sounds. Absent: systolic murmur, diastolic murmur, rubs, gallop, clicks GI/Abdominal exam: Present: soft, normal bowel sounds. Absent: distended, tenderness, guarding, rebound, rigid Extremities exam: Present: normal inspection, full ROM, normal capillary refill. Absent: tenderness, pedal edema, joint swelling, calf tenderness Back exam: Present: normal inspection Neurological exam: Present: alert, oriented X3, CN II-XII intact Psychiatric exam: Present: normal affect, normal mood Skin exam: Present: warm, dry, intact, normal color. Absent: rash Course Vital Signs 04/24/24 04/24/24 16:36 19:40 Temperature 97.3 F L Pulse Rate 88 75 Respiratory 18 16 Rate Blood Pressure 122/82 125/85 O2 Sat by Pulse 98 97 Oximetry Chest Pain MDM - MDM Was pt. sent in by a medical professional or institution (, PA, BEDSP[employer] F[employer]DER, urgent care, hospital, or [facility]...) When possible be specific @ -No Did you speak to anyone other than the patient for history (EMS, parent, family, police, friend...)? What history was obtained from this source @ -No Did you review nursing and triage notes (agree or disagree)? Why? @ -I reviewed and agree with nursing and triage notes Were old charts reviewed (outside hosp., previous admission, EMS record, old EKG, old radiological studies, urgent care reports/EKG's, [facility] records)? Report findings @ -No old charts were reviewed Differential Diagnosis (chest pain, altered mental status, abdominal pain women, abdominal pain men, vaginal bleeding, weakness, fever, dyspnea, syncope, headache, dizziness, GI bleed, back pain, seizure, CVA, palpatations, mental health, musculoskeletal)? @ -Differential Chest Pain: Stable Angina, Unstable Angina, STEMI, NSTEMI Aortic Dissection, Pneumothorax, Musculoskeletal, Esophageal Spasm GERD, Cholecystitis, Pancreatitis, Zoster, this is not meant to be an all-inclusive list. EKG interpreted by me (3pts min.). @ -Yes and demonstrates sinus rhythm with a rate of 77. NM interval 152. QRS 88. QTc of 409. No acute ST segment elevations or depressions X-rays interpreted by me (1pt min.). @ -Yes and demonstrates no acute process CT interpreted by me (1pt min.). @ -None done U/S interpreted by me (1pt. min.). @ -None done What testing was considered but not performed or refused? (CT, X-rays, U/S, labs)? Why? @ -None What meds were considered but not given or refused? Why? @ -None Did you discuss the management of the patient with other professionals (professionals i.e. DrJamshid, PA, B[employer]SP[employer] F[employer]DER, lab, RT, psych nurse, social economist, cert pharmacy tech, teacher, facilities officer, upper caser)? Give summary @ -No Was smoking cessation discussed for >3mins.? @ -No Was critical care preformed (if so, how long)? @ -No Were there social determinants of health that impacted care today? How? (Homelessness, low income, unemployed, alcoholism, drug addiction, transportation, low edu. Level, literacy, decrease access to med. care, halfway, rehab)? @ -No Was there de-escalation of care discussed even if they declined (Discuss DNR or withdrawal of care, Hospice)? DNR status @ -No What co-morbidities impacted this encounter? (DM, HTN, Smoking, COPD, CAD, Cancer, CVA, ARF, Chemo, Hep., AIDS, mental health diagnosis, sleep apnea, morbid obesity)? @ -Hiatal hernia Was patient admitted / discharged? Hospital course, mention meds given and route, prescriptions, significant lab abnormalities, going to OR and other pertinent info. @ -Upon arrival patient seen and evaluated in room 16. Thorough history and physical exam was performed. IV access established. Laboratory studies are conducted. Pain is not present at this time. Twelve-lead EKG was performed. Chest x-ray was performed. I did discuss results with the patient. She is eager to go home at this time. She does have a low heart score. Patient be discharged home. Instructed follow with her primary care doctor for an echo and stress test. Return for any new or worsening symptoms. Patient agreeable plan was discharged in stable condition Undiagnosed new problem with uncertain prognosis? @ -No Drug Therapy requiring intensive monitoring for toxicity (Heparin, Nitro, Insulin, Cardizem)? @ -No Were any procedures done? @ -No Diagnosis/symptom? @ -Acute chest pain Acute, or Chronic, or Acute on Chronic? @ -Acute Uncomplicated (without systemic symptoms) or Complicated (systemic symptoms)? @ -Complicated Side effects of treatment? @ -No Exacerbation, Progression, or Severe Exacerbation? @ -No Poses a threat to life or bodily function? How? (Chest pain, [place], [place], pneumonia, PE, COPD, DKA, ARF, appy, cholecystitis, CVA, Diverticulitis, Homicidal, Suicidal, threat to staff... and all critical care pts) @ -No Disposition Clinical Impression: Chest pain Disposition: HOME SELF-CARE Condition: Stable Instructions (If sedation given, give patient instructions): Chest Pain (ED) Additional Instructions: Please follow-up with your primary care doctor for further evaluation of your symptoms. Return for any new or worsening symptoms Is patient prescribed a controlled substance at d/c from ED?: No Referrals: Carly Loyd MD [Primary Care Provider] - 1-2 days Gary Parson DO [STAFF PHYSICIAN] - 1-2 days Time of Disposition: 19:06
[2024-04-24 20:00] VITALS: BP 125/85; PULSE 75; RESP 16
== END 2024-04-24 20:00 | disposition home or self-care (01) ==
LOC: EC 16:35
DX: R07.89 Other chest pain (principal); F17.200 Nicotine dependence, unspecified, uncomplicated; Z88.5 Allergy status to narcotic agent; Z88.8 Allergy status to other drugs, medicaments and biological substances
CPT/HCPCS: 36415; 71046; 80053; 83690; 83735; 84484; 85025; 85610; 85730; 93005; 99285

== ENCOUNTER → 2024-06-18 | Outpatient (CLI) | payer MEDICARE, BC ==
--- NOTE | 2024-06-18 16:38 | CA ---
Transthoracic Echo Report Name: Josefina Albarado Age: 69 Gender: F : 1955 Exam Date: 06/18/2024 14:20 Exam Location: [place] Echo Ht (in): 69 Wt (lb): 170 Ordering Physician: Carly Loyd MD Attending/Referring Phys: Carly Loyd MD [employer] Kiera Alex, [facility] Procedure CPT: Indications: R00.2 palpitations Cardiac Hx: Technical Quality: Fair Contrast 1: Total Dose (mL): Contrast 2: Total Dose (mL): MEASUREMENTS (Male / Female) Normal Values 2D ECHO LV Diastolic Diameter PLAX 4.4 cm 4.2 - 5.9 / 3.9 - 5.3 cm LV Systolic Diameter PLAX 3.1 cm IVS Diastolic Thickness 0.9 cm 0.6 - 1.0 / 0.6 - 0.9 cm LVPW Diastolic Thickness 1.0 cm 0.6 - 1.0 / 0.6 - 0.9 cm LV Relative Wall Thickness 0.4 LVOT Diameter 2.0 cm DOPPLER AV Peak Velocity 129.6 cm/s AV Peak Gradient 6.7 mmHg AV Mean Velocity 83.1 cm/s AV Mean Gradient 3.2 mmHg AV Velocity Time Integral 25.5 cm LVOT Peak Velocity 106.8 cm/s LVOT Peak Gradient 4.6 mmHg LVOT Velocity Time Integral 23.9 cm LVOT Stroke Volume 74.5 cm??? LVOT Stroke Volume Index 38.6 ml/m??? LVOT Cardiac Index 2295.9 cm???/min???m??? AV Area Cont Eq vti 2.9 cm??? AV Area Cont Eq pk 2.6 cm??? FINDINGS Left Ventricle Left ventricular ejection fraction is estimated at 55-60 %. Left ventricular cavity size normal. Left ventricular wall thickness normal. No obvious regional wall motion abnormalities. Right Ventricle Normal right ventricular size and function. Unable to estimate the right ventricular systolic pressure. Right Atrium Normal right atrial size. Left Atrium Normal left atrial size. Mitral Valve Structurally normal mitral valve. No mitral stenosis, regurgitation or prolapse. Aortic Valve Aortic valve not well visualized. No aortic valve stenosis or regurgitation. Tricuspid Valve Structurally normal tricuspid valve. No tricuspid stenosis. No tricuspid regurgitation. Pulmonic Valve Pulmonic valve not well visualized. No pulmonic stenosis. No pulmonic regurgitation. Pericardium No pericardial effusion. Aorta Aortic annulus normal. CONCLUSIONS Normal LV function Previewed by: Dr. Jose Ramon Guthrie MD (Electronically Signed) Final Date: 18 June 2024 16:37
== END | disposition home or self-care (01) ==
LOC: RADECHMAIN 14:15
PROVIDERS: ATTEND Internal Medicine
DX: R00.2 Palpitations (principal)
CPT/HCPCS: 93306

== ENCOUNTER → 2024-11-02 | Outpatient (CLI) | payer MEDICARE, BC ==
--- NOTE | 2024-11-02 11:57 | XR ---
EXAMINATION TYPE: XR KUB DATE OF EXAM: 11/02/2024 COMPARISON: CT abdomen and pelvis 05/22/2023 HISTORY: Right flank pain TECHNIQUE: Single supine KUB image of the abdomen is obtained FINDINGS: Small bowel demonstrates no evidence for dilatation or air fluid levels. Moderate amount of stool is present throughout the colon and rectum. No convincing evidence for pneumoperitoneum. No abnormal calcifications. Cholecystectomy clips are outer quadrant. Additional surgical clips within the left upper quadrant. P ostsurgical changes with suture material in the stomach in the left upper quadrant. Stimulator device overlies the right pelvis with lead terminating in the right pelvis. The lung bases are clear. The osseous structures are intact. IMPRESSION: 1. Overall nonobstructive bowel gas pattern. Moderate amount of stool is present throughout the colo n and rectum. Correlate for constipation. 2. No abnormal calcifications. [facility], , 11/02/2024 11:55 AM
== END | disposition home or self-care (01) ==
LOC: LABWHC1 11:13
PROVIDERS: ATTEND Internal Medicine
DX: R10.9 Unspecified abdominal pain (principal); R19.5 Other fecal abnormalities
CPT/HCPCS: 74018

== ENCOUNTER → 2024-11-29 | Outpatient (CLI) | payer MEDICARE, BC ==
--- NOTE | 2024-11-29 19:13 | CA ---
Lexiscan Nuclear Stress Test Report Name: Josefina Albarado Exam Date: 11/29/2024 10:59 Exam Location: [place] Stress Ht (in): 69 Wt (lb): 165 BSA: 1.90 Ordering Phys: Carly Mckenzie MD Referring Phys: CARLY MCKENZIE,, Technologist: Ayden Ambrosio Age: 69 Gender: F : 1955 Procedure CPT: Indications: R00.2 palpitations ICD-10 Codes: Patient History: Medications: Meds past 24 hrs: Pretest Chest Pain: STRESS TEST Lexiscan Protocol Exercise Duration (min:sec): 02:[address] Depressions (mm): Angina Score: Santana Score: Resting HR (bpm): 56 Peak HR (bpm): 83 Resting BP (mmHg): 143 / 70 Peak BP (mmHg): 139 / 72 MPHR: 153 Target HR: 130 % MPHR: 54 METS: 1.0 Total Dose: Peak Dose: Atropine: Double Product: 14392 BP Response: Stress Termination: INFUSION COMPLETE Stress Symptoms: NO SYMPTOMS Stress Summary: ECG ANALYSIS Resting ECG: Stress ECG: CONCLUSIONS Nondiagnostic stress testing Dr. Rickie Louie MD (Electronically Signed) Final Date: 29 November 2024 19:12
--- NOTE | 2024-11-29 22:15 | NM ---
EXAMINATION TYPE: NM stress lexiscan cardiolite DATE OF EXAM: 11/29/2024 COMPARISON: 11/25/2020 CLINICAL INDICATION: Female, 69 years old with history of R00.2 PALPITATIONS, TECHNIQUE: After the intravenous administration of 9.63 mCi Tc 99m Sestamibi - Cardiolite resting SP ECT images acquired 45 minutes post injection. At peak stress 24.8 mCi Tc 99m Sestamibi - Stress images obtained 30 minutes post injection The patient was stressed with 0.4mg Lexiscan. FINDINGS: No fixed defects are evident. Polar maps suggest a tiny apical reversible defect. This is poorly visualized on the SPECT imaging. Dyskinesias present at the cardiac apex. Ejection fraction is calculated to be 69 %. Some breast artifact is noted on rest and stress images. IMPRESSION: 1. Small poorly visualized suspected stress-induced ischemic change at the cardiac apex with some dys kinesia of the apex and wall motion. 2. Remaining portions appear normal without fixed or reversible perfusion defects [facility], , 11/29/2024 10:13 PM
== END | disposition home or self-care (01) ==
LOC: RADNMMAIN 09:01
PROVIDERS: ATTEND Internal Medicine
DX: R00.2 Palpitations (principal)
CPT/HCPCS: 93017; 78452; A9500; J2785

== ENCOUNTER → 2024-12-04 | Outpatient (CLI) | payer MEDICARE, BC ==
--- NOTE | 2024-12-04 14:19 | MM ---
Reason for Exam: Screening (asymptomatic). Last mammogram was performed 1 year(s) and 6 month(s) ago. Patient History: Menarche at age 17. First Full-Term at age 27. Left ovary removed at age 39. Right ovary removed at age 39. Hysterectomy at age 39. Postmenopausal. Estrogen, starting at age 41 for 12 years. Used Progesterone. 01/25/2016, Benign Core Biopsy on the left side. 03/13/2001, Benign Excisional Biopsy on the left side. Maternal aunt had breast cancer, age 63. Paternal grandmother had breast cancer, age 50. Mother had breast cancer, age 60. Risk Values: Lyndsey 5 year model risk: 4.5%. NCI Lifetime model risk: 14.9%. Prior Study Comparison: 09/26/2019 Bilateral Diagnostic Mammogram, [facility]. 07/28/2021 Bilateral Screening Mammogram, [facility]. 05/22/2023 Bilateral MG 3D screening mammo w/cad, [facility]. Tissue Density: The breasts are heterogeneously dense, which may obscure small masses. Findings: Analyzed By CAD. There is no suspicious group of microcalcifications or new suspicious mass in either breast. Overall Assessment: Benign, BI-RAD 2 Management: Screening Mammogram of both breasts in 1 year. . Patient should continue monthly self-breast exams. A clinical breast exam by your physician is recommended on an annual basis. This exam should not preclude additional follow-up of suspicious palpable abnormalities. Note on Lyndsey scores and lifetime risk: 1. A Lyndsey score greater than 3% is considered moderate risk. If this is the case, consider specialist referral to assess eligibility for a risk reducing agent. 2. If overall lifetime risk for the development of breast cancer is 20% or higher, the patient may qualify for future screening with alternating mammogram and breast MRI. [facility], , 12/04/2024 2:16 PM. Electronically signed and approved by: Saul Duncan M.D. Radiologis
== END | disposition home or self-care (01) ==
LOC: RADMAMWWP 13:35
PROVIDERS: ATTEND Internal Medicine
DX: Z12.31 Encounter for screening mammogram for malignant neoplasm of breast (principal); R92.333 Mammographic heterogeneous density, bilateral breasts; Z78.0 Asymptomatic menopausal state; Z80.3 Family history of malignant neoplasm of breast
CPT/HCPCS: 77063; 77067

== ENCOUNTER → 2024-12-23 | Outpatient (CLI) | payer MEDICARE, BC ==
[2024-12-23 12:59] LABS: ALT 31 U/L (4-34); AST 41 U/L (14-36); African American GFR (CKD) 68 (>60 ml/min/1.73 sqM); Albumin 4.2 g/dL (3.5-5.0); Albumin/Globulin Ratio 1.4; Alkaline Phosphatase 132 U/L (38-126); Anion Gap 9 mmol/L; Blood Urea Nitrogen 13 mg/dL (7-17); Calcium 9.7 mg/dL (8.4-10.2); Carbon Dioxide 29 mmol/L (22-30); Chloride 100 mmol/L (98-107); Globulin 2.9 g/dL; Glucose 90 mg/dL (74-99); Non-African American GFR(CKD) 59 (>60 ml/min/1.73 sqM); Potassium 4.1 mmol/L (3.5-5.1); Sodium 138 mmol/L (137-145); Total Bilirubin 0.6 mg/dL (0.2-1.3); Total Protein 7.1 g/dL (6.3-8.2)
--- NOTE | 2024-12-24 10:13 | CT ---
EXAMINATION TYPE: CT urogram wo/w con DATE OF EXAM: 12/23/2024 2:04 PM COMPARISON: 05/22/2023 CLINICAL INDICATION: Female, 69 years old with history of N20.0 CALCULUS OF KIDNEY R31.29 OTHER MICRO SCOPIC, right kidney issues/uti TECHNIQUE: Axial images were obtained from above the diaphragm to the pubic rami in the axial plane a t 5 mm thick sections. Reconstructed images are reviewed on the computer in the coronal plane. Thre e-D reconstructed images through the kidneys ureter and bladder are performed on separate computer by the technologist. CONTRAST: 80 mL of Isovue 300. Study performed DLP: 1743.40 mGycm, Automated exposure control for dose reduction was used. FINDINGS: Limited CT sections are obtained the lung bases. There is a small pleural-based density measuring 0. 5 cm left costophrenic angle, series 4 image 32. This was present previously. CT ABDOMEN: Liver: Normal Spleen: Normal. Splenule posterior to the spleen Pancreas: Normal Adrenal glands: The adrenal glands are normal. Gallbladder: Surgically absent Kidneys: No renal stones are identified on precontrast imaging. No hydronephrosis is present. No cy sts are present. Three-D reconstructed images performed on a separate computer are reviewed. There may be some mild pr ominence of the infundibulum. No renal pelvic dilatation is evident. Ureters follow a normal caliber course and contour and sequential images to the urinary bladder. There is limited visualization on th e left with incomplete opacification no filling defects are evident. Urinary bladder as visualized appears unremarkable Aorta: Vascular calcification within the aorta. Inferior vena cava: Normal. CT PELVIS: Loops of bowel within the abdomen and pelvis are normal. Fecal debris is within the colon. There a re loops of bowel which are incompletely distended or lack oral contrast limiting their evaluation. Appendix: Not identified. No suspicious dilated tubular structure or inflammatory change evident. Urinary bladder: Normal. Genitourinary structures: Uterus and ovaries not identified Osseous structures: No suspicious lytic or sclerotic lesions. Spondylolysis of L5 on the right AV pre sent. There is degenerative disc change L5-S1. Degenerative disc changes are also present L4-5. IMPRESSION: 1. Mild prominence of the bilateral renal infundibula without hydronephrosis. No ureteral or renal a bnormality identified. Urinary bladder appears unremarkable as visualized. [facility], , 12/24/2024 10:11 AM
== END | disposition home or self-care (01) ==
LOC: RADCTMAIN 12:26
PROVIDERS: ATTEND Urology
DX: N20.0 Calculus of kidney (principal); N28.89 Other specified disorders of kidney and ureter; R31.29 Other microscopic hematuria
CPT/HCPCS: 80053; 74178; 36415; 74400; Q9967

== ENCOUNTER → 2025-02-26 | Outpatient (CLI) | payer MEDICARE, BC ==
--- NOTE | 2025-02-26 12:19 | CT ---
EXAMINATION TYPE: CT chest wo con DATE OF EXAM: 02/26/2025 11:50 AM COMPARISON: Multiple CTs of the chest with most recent on 02/03/2024 CLINICAL INDICATION: Female, 70 years old with history of LUNG NODULES; PHH, LUNG NODULES TECHNIQUE: Multiple axial images were obtained through the chest. Sagittal and coronal reformats were created for review. MIP was performed on a separate workstation. Contrast used: mL of (None if empty) Oral contrast used: (None if empty) CT DLP: 573 mGycm, Automated exposure control for dose reduction was used. FINDINGS: LUNGS/ PLEURA: Stable right middle lobe pulmonary nodule measuring up to 6 mm. No new or enlarging pu lmonary nodules. Stable right posterior 2 mm nodule series 3 image 31. Stable left lower lobe lateral wedge-shaped nodule versus atelectasis series 3 image 50. No focal consolidation, pneumothorax or p leural effusion. AIRWAY: Patent and unremarkable. HEART: Size within normal limits. No significant coronary artery calcifications. MEDIASTINUM: No gross evidence of adenopathy. VASCULATURE: No aortic aneurysm. MUSCULOSKELETAL: No acute osseous abnormalities SOFT TISSUES/LYMPH NODES: Unremarkable. LOWER NECK: No significant findings. UPPER ABDOMEN: Postsurgical changes to the gastric lumen. The gallbladder surgically absent. Fat-cont aining ventral wall hernia partially visualized. Small splenule seen near the spleen. IMPRESSION: 1. Stable pulmonary nodules. No new or enlarging pulmonary nodules. No acute process. 2. Postsurgical changes to the gastric lumen. 3. Post surgical changes the gallbladder. [facility], , 02/26/2025 12:17 PM
== END | disposition home or self-care (01) ==
LOC: RADCTMAIN 11:18
PROVIDERS: ATTEND Internal Medicine Critical Care Medicine
DX: R91.8 Other nonspecific abnormal finding of lung field (principal); Z98.890 Other specified postprocedural states
CPT/HCPCS: 71250